=== PATIENT | female | born 1935 | race Caucasian/White ===

== ENCOUNTER → 2016-11-24 | Outpatient (REF) | payer MEDICARE, BC ==
[~2016-11-24] MED LIST: ASPI81TA83 PO; CALTRATE PO; COLA100C2 PO; DILTIAZEM PO; HYDR25TA6 PO; LEVO100T PO; [UNRECOGNIZED DRUG - OTHER] PO
[2016-11-27 13:57] LABS: PERCENT SATURATION 15.3 % (13.2-37.4)
== END ==
LOC: M LAB REF 12:44
PROVIDERS: ATTEND Internal Medicine
DX: D64.9 Anemia, unspecified (principal)

== ENCOUNTER 2018-01-11 20:59 | Inpatient (IN) | payer MEDICARE, BC ==
[2018-01-11] MEDS: NS 1,000 ML IV (18:30)
[2018-01-11] MEDS: MORPHINE 2 MG/ML 1ML SYRINGE (J2270) IV ×2 (18:59→19:22)
[2018-01-11 19:05] LABS: HEMATOCRIT 36.9 % (36.0-47.0); HEMOGLOBIN 11.5 g/dl (12.0-15.5); MEAN CORPUSCULAR HEMOGLOBIN 25.4 pg (27.0-33.0); MEAN CORPUSCULAR HGB CONC 31.2 g/dl (32.0-36.5); MEAN CORPUSCULAR VOLUME 81.6 fl (80.0-96.0); PLATELET COUNT, AUTOMATED 282 10^3/uL (150-450); RED BLOOD COUNT 4.52 10^6/uL (4.00-5.40); RED CELL DISTRIBUTION WIDTH 14.3 % (11.5-14.5); WHITE BLOOD COUNT 10.6 10^3/uL (4.0-10.0)
[2018-01-11 19:09] LABS: KETONE, URINE AUTO RFX NEGATIVE (NEGATIVE); MUCUS, URINE RFX SMALL (NEGATIVE); NITRITE, URINE AUTO RFX NEGATIVE (NEGATIVE); RBC, URINE AUTO RFX 2 /HPF (0-3); SPECIFIC GRAVITY UR AUTO RFX 1.006 (1.002-1.035); SQUAM EPITHELIAL CELL UR AURFX 1 /HPF (0-6)
[2018-01-11 19:10] LABS: LEUKOCYTE ESTERASE UR AUTO RFX 2+ (NEGATIVE); WBC, URINE AUTO RFX 11 /HPF (0-3)
[2018-01-11 19:35] LABS: ALBUMIN 3.7 GM/DL (3.2-5.2); ALBUMIN/GLOBULIN RATIO 1.06 (1.00-1.93); ALKALINE PHOSPHATASE 87 U/L (45-117); ALT/SGPT 25 U/L (12-78); ANION GAP 9 MEQ/L (8-16); AST/SGOT 31 U/L (7-37); BILIRUBIN,DIRECT < 0.1 MG/DL (0.0-0.2); BILIRUBIN,TOTAL 0.5 MG/DL (0.2-1.0); BLOOD UREA NITROGEN 13 MG/DL (7-18); CALCIUM LEVEL 8.5 MG/DL (8.8-10.2); CARBON DIOXIDE LEVEL 28 MEQ/L (21-32); CHLORIDE LEVEL 102 MEQ/L (98-107); GLOMERULAR FILTRATION RATE 50.4 (>32); GLUCOSE, FASTING 93 MG/DL (70-100); POTASSIUM SERUM 4.3 MEQ/L (3.5-5.1); SODIUM LEVEL 139 MEQ/L (136-145); TOTAL PROTEIN 7.2 GM/DL (6.4-8.2)
[2018-01-11 19:50] LABS: INR 1.04; PROTHROMBIN TIME 13.7 SECONDS (12.1-14.4)
[2018-01-11] MEDS: LORazepam 2 MG/ML VIAL (J2060) IV (20:16)
[~2018-01-11 20:59] MED LIST changes: -ASPI81TA83 PO; -CALTRATE PO; -COLA100C2 PO; -DILTIAZEM PO; -HYDR25TA6 PO; -LEVO100T PO; +MORPHINE 4 MG/ML 1ML VIAL/SYRINGE (J2270) IV; +NS 1,000 ML IV; +PERCOCET 5MG/325MG TAB PO; -[UNRECOGNIZED DRUG - OTHER] PO
[2018-01-11] MEDS ORDERED: ONDANSETRON 4MG/2ML VIAL (J2405) As Ordered (21:40)
[2018-01-11] MEDS ORDERED: ROCURONIUM BROMIDE 50 MG/5 ML VIAL As Ordered (21:40)
[2018-01-11] MEDS ORDERED: dexameTHASONE 4 MG/ML 1ML VIAL (J1100) As Ordered (21:40)
[2018-01-11] MEDS ORDERED: LIDOCAINE 2% INJ 100 MG/5 ML SDV (FOR ANES.) As Ordered (21:40)
[2018-01-11] MEDS ORDERED: PROPOFOL 200 MG/20 ML VIAL As Ordered (21:40)
[2018-01-11] MEDS ORDERED: fentaNYL 100 MCG/2 ML INJECTION (J3010) As Ordered (21:43)
[2018-01-11] MEDS ORDERED: SUCCINYLCHOLINE 100 MG/5 ML SYRINGE (J0330) As Ordered (22:01)
[2018-01-11] MEDS: VANCOMYCIN 1000 MG/20 ML VIAL (J3370) As Ordered (22:20)
[2018-01-11] MEDS ORDERED: PHENYLephrine HCL 500 MCG/5 ML (100MCG/ML) SYRINGE (J2370) As Ordered (22:34)
[2018-01-11] MEDS: CLINDAMYCIN 600 MG/50 ML PREMIX BAG As Ordered (23:00)
[2018-01-11] MEDS: BUPIVACAINE/EPIN 0.25% 30 ML VIAL As Ordered (23:00)
[2018-01-11] MEDS ORDERED: MORPHINE 4 MG/ML 1ML VIAL/SYRINGE (J2270) IV (23:45)
[2018-01-11] MEDS ORDERED: ONDANSETRON 4MG/2ML VIAL (J2405) IV (23:45)
[2018-01-11] MEDS ORDERED: fentaNYL 100 MCG/2 ML INJECTION (J3010) IV (23:45)
[2018-01-11] MEDS: LR 1,000 ML IV (23:45)
[2018-01-12] MEDS: SENOKOT S TAB PO ×3 (00:47→21:43)
[2018-01-12] MEDS: PERCOCET 5MG/325MG TAB PO ×2 (00:48→18:22)
[2018-01-12] MEDS: LR 1,000 ML IV (00:48)
[2018-01-12] MEDS: diltiaZEM **CD** 180 MG CAP PO ×2 (00:48→21:43)
[2018-01-12] MEDS: LEVOTHYROXINE 112MCG TABLET (0.112MG) PO (05:12)
[2018-01-12] MEDS: ACETAMINOPHEN TAB 650MG DOSE (2X325MG) PO (05:13)
[2018-01-12 05:31] LABS: HEMATOCRIT 32.8 % (36.0-47.0); HEMOGLOBIN 10.4 g/dl (12.0-15.5); MEAN CORPUSCULAR HEMOGLOBIN 26.1 pg (27.0-33.0); MEAN CORPUSCULAR HGB CONC 31.7 g/dl (32.0-36.5); MEAN CORPUSCULAR VOLUME 82.2 fl (80.0-96.0); PLATELET COUNT, AUTOMATED 236 10^3/uL (150-450); RED BLOOD COUNT 3.99 10^6/uL (4.00-5.40); RED CELL DISTRIBUTION WIDTH 14.1 % (11.5-14.5); WHITE BLOOD COUNT 9.5 10^3/uL (4.0-10.0)
[2018-01-12 05:44] LABS: ANION GAP 9 MEQ/L (8-16); BLOOD UREA NITROGEN 11 MG/DL (7-18); CALCIUM LEVEL 7.9 MG/DL (8.8-10.2); CARBON DIOXIDE LEVEL 26 MEQ/L (21-32); CHLORIDE LEVEL 105 MEQ/L (98-107); CREATININE FOR GFR 0.98 MG/DL (0.55-1.30); GLOMERULAR FILTRATION RATE 57.6 (>32); GLUCOSE, FASTING 146 MG/DL (70-100); POTASSIUM SERUM 4.2 MEQ/L (3.5-5.1); SODIUM LEVEL 140 MEQ/L (136-145)
[2018-01-12] MEDS ORDERED: ASPIRIN ENTERIC 325 MG TAB PO (09:00)
[2018-01-12] MEDS: VITAMIN D 1,000 INTERNATIONAL UNITS TABLET PO (10:19)
[2018-01-12] MEDS: FUROSEMIDE 40 MG TAB PO (10:19)
[2018-01-12] MEDS: POTASSIUM CHLORIDE 10 MEQ SR TABLET PO (10:19)
[2018-01-12] MEDS: PANTOPRAZOLE 40MG TAB (PROTONIX) PO (10:19)
[2018-01-12] MEDS: ENOXAPARIN 40 MG/0.4 ML SYRINGE (J1650) SC (10:20)
[2018-01-12] MEDS: METAMUCIL (PSYLLIUM) PACKET PO (10:20)
[2018-01-13] MEDS: ACETAMINOPHEN TAB 650MG DOSE (2X325MG) PO ×2 (03:43→09:18)
[2018-01-13] MEDS: LEVOTHYROXINE 112MCG TABLET (0.112MG) PO (06:04)
[2018-01-13] MEDS ORDERED: IPRATROPIUM 0.5MG/ALBUTEROL 2.5MG INH SOL UD 3ML (DUONEB)(J7620) NEB (07:15)
[2018-01-13 08:12] LABS: HEMATOCRIT 29.8 % (36.0-47.0); HEMOGLOBIN 9.3 g/dl (12.0-15.5); MEAN CORPUSCULAR HEMOGLOBIN 25.5 pg (27.0-33.0); MEAN CORPUSCULAR HGB CONC 31.2 g/dl (32.0-36.5); MEAN CORPUSCULAR VOLUME 81.6 fl (80.0-96.0); PLATELET COUNT, AUTOMATED 230 10^3/uL (150-450); RED BLOOD COUNT 3.65 10^6/uL (4.00-5.40); RED CELL DISTRIBUTION WIDTH 14.4 % (11.5-14.5); WHITE BLOOD COUNT 8.1 10^3/uL (4.0-10.0)
[2018-01-13 08:33] LABS: ANION GAP 8 MEQ/L (8-16); BLOOD UREA NITROGEN 20 MG/DL (7-18); CALCIUM LEVEL 7.8 MG/DL (8.8-10.2); CARBON DIOXIDE LEVEL 27 MEQ/L (21-32); CHLORIDE LEVEL 103 MEQ/L (98-107); CREATININE FOR GFR 1.13 MG/DL (0.55-1.30); GLOMERULAR FILTRATION RATE 48.8 (>32); GLUCOSE, FASTING 101 MG/DL (70-100); POTASSIUM SERUM 4.1 MEQ/L (3.5-5.1); SODIUM LEVEL 138 MEQ/L (136-145)
[2018-01-13 08:36] LABS: CPK CREATINE PHOSPHOKINASE 185 U/L (26-192); TROPONIN I 0.06 NG/ML (< 0.10)
[2018-01-13 08:37] LABS: MB/CK RELATIVE INDEX 1.62 (< OR =4); NT-PRO BNP 880 PG/ML (<450)
[2018-01-13] MEDS: IPRATROPIUM 0.5MG/ALBUTEROL 2.5MG INH SOL UD 3ML (DUONEB)(J7620) NEB ×4 (08:48→20:17)
[2018-01-13] MEDS: VITAMIN D 1,000 INTERNATIONAL UNITS TABLET PO (09:19)
[2018-01-13] MEDS: POTASSIUM CHLORIDE 10 MEQ SR TABLET PO (09:19)
[2018-01-13] MEDS: SENOKOT S TAB PO ×2 (09:19→21:06)
[2018-01-13] MEDS: PANTOPRAZOLE 40MG TAB (PROTONIX) PO (09:19)
[2018-01-13] MEDS: FUROSEMIDE 40 MG TAB PO (09:19)
[2018-01-13] MEDS: ENOXAPARIN 40 MG/0.4 ML SYRINGE (J1650) SC (09:20)
[2018-01-13] MEDS: MIRALAX *UNIT DOSE* 17GM PACKET PO (09:20)
[2018-01-13] MEDS: PERCOCET 5MG/325MG TAB PO ×2 (14:21→21:06)
[2018-01-13] MEDS: diltiaZEM **CD** 180 MG CAP PO (21:07)
[2018-01-14] MEDS: LEVOTHYROXINE 112MCG TABLET (0.112MG) PO (05:43)
[2018-01-14 06:40] LABS: HEMATOCRIT 30.1 % (36.0-47.0); HEMOGLOBIN 9.4 g/dl (12.0-15.5); MEAN CORPUSCULAR HEMOGLOBIN 25.5 pg (27.0-33.0); MEAN CORPUSCULAR HGB CONC 31.2 g/dl (32.0-36.5); MEAN CORPUSCULAR VOLUME 81.8 fl (80.0-96.0); PLATELET COUNT, AUTOMATED 225 10^3/uL (150-450); RED BLOOD COUNT 3.68 10^6/uL (4.00-5.40); RED CELL DISTRIBUTION WIDTH 14.6 % (11.5-14.5); WHITE BLOOD COUNT 6.5 10^3/uL (4.0-10.0)
[2018-01-14] MEDS: IPRATROPIUM 0.5MG/ALBUTEROL 2.5MG INH SOL UD 3ML (DUONEB)(J7620) NEB ×2 (08:49→12:31)
[2018-01-14] MEDS: VITAMIN D 1,000 INTERNATIONAL UNITS TABLET PO (09:51)
[2018-01-14] MEDS: FUROSEMIDE 40 MG TAB PO (09:51)
[2018-01-14] MEDS: ACETAMINOPHEN TAB 650MG DOSE (2X325MG) PO (09:51)
[2018-01-14] MEDS: POTASSIUM CHLORIDE 10 MEQ SR TABLET PO (09:52)
[2018-01-14] MEDS: PANTOPRAZOLE 40MG TAB (PROTONIX) PO (09:52)
[2018-01-14] MEDS: SENOKOT S TAB PO (09:52)
[2018-01-14] MEDS: MIRALAX *UNIT DOSE* 17GM PACKET PO (09:53)
[2018-01-14] MEDS: ENOXAPARIN 40 MG/0.4 ML SYRINGE (J1650) SC (09:53)
== END 2018-01-14 14:00 | DRG 481 ==
LOC: M MS5PR 01-12 00:25 → M ED 20:59 → M ED INP 21:02
PROC: 0QS604Z Reposition Right Upper Femur with Internal Fixation Device, Open Approach (ICD-10-PCS; principal; 2018-01-11 21:57)
DX: S72.001A Fracture of unspecified part of neck of right femur, initial encounter for closed fracture (principal); S52.501A Unspecified fracture of the lower end of right radius, initial encounter for closed fracture; I10 Essential (primary) hypertension; W01.0XXA Fall on same level from slipping, tripping and stumbling without subsequent striking against object, initial encounter; Y92.89 Other specified places as the place of occurrence of the external cause; Y93.01 Activity, walking, marching and hiking; E78.5 Hyperlipidemia, unspecified; E03.9 Hypothyroidism, unspecified; Z90.49 Acquired absence of other specified parts of digestive tract; Z88.0 Allergy status to penicillin; Z88.5 Allergy status to narcotic agent; Z88.1 Allergy status to other antibiotic agents; Z87.891 Personal history of nicotine dependence

== ENCOUNTER 2018-01-14 14:05 | Inpatient (IN) | payer MEDICARE, BC ==
[~2018-01-14 14:05] MED LIST changes: +BISACODYL 10 MG SUPP PR; +MOM 30ML SUSPENSION UDC PO; -MORPHINE 4 MG/ML 1ML VIAL/SYRINGE (J2270) IV; -NS 1,000 ML IV; +ONDANSETRON 4 MG TAB (S0181) PO; +ONDANSETRON 4MG/2ML VIAL (J2405) IM; -PERCOCET 5MG/325MG TAB PO
[2018-01-14] MEDS ORDERED: IPRATROPIUM 0.5MG/ALBUTEROL 2.5MG INH SOL UD 3ML (DUONEB)(J7620) NEB (14:45)
[2018-01-14] MEDS: PERCOCET 5MG/325MG TAB PO ×2 (14:56→21:12)
[2018-01-14] MEDS: ASPIRIN 81 MG ENTERIC TAB PO (15:44)
[2018-01-14] MEDS: diltiaZEM **CD** 180 MG CAP PO (21:11)
[2018-01-14] MEDS: BISACODYL 5 MG TAB PO (21:12)
[2018-01-14] MEDS: SENOKOT S TAB PO (21:12)
[2018-01-15] MEDS: LEVOTHYROXINE 112MCG TABLET (0.112MG) PO (06:28)
[2018-01-15] MEDS: PERCOCET 5MG/325MG TAB PO ×2 (06:31→20:13)
[2018-01-15 06:36] LABS: BASO # 0.1 10^3/uL (0.0-0.2); BASO % 0.9 % (0.0-1.0); EOS # 0.4 10^3/uL (0.0-0.50); EOS % 6.3 % (0.0-3.0); HEMATOCRIT 29.1 % (36.0-47.0); HEMOGLOBIN 9.1 g/dl (12.0-15.5); IMMATURE GRANULOCYTE % 0.4 % (0-3.0); LYMPH # 1.3 10^3/uL (1.5-4.5); MEAN CORPUSCULAR HEMOGLOBIN 25.7 pg (27.0-33.0); MEAN CORPUSCULAR HGB CONC 31.3 g/dl (32.0-36.5); MEAN CORPUSCULAR VOLUME 82.2 fl (80.0-96.0); MONO # 0.5 10^3/uL (0.0-0.8); MONO % 9.5 % (0.0-5.0); NEUTROPHILS # 3.3 10^3/uL (1.8-7.7); NEUTROPHILS % 58.9 % (36.0-66.0); PLATELET COUNT, AUTOMATED 253 10^3/uL (150-450); RED BLOOD COUNT 3.54 10^6/uL (4.00-5.40); RED CELL DISTRIBUTION WIDTH 14.6 % (11.5-14.5); WHITE BLOOD COUNT 5.6 10^3/uL (4.0-10.0)
[2018-01-15 06:58] LABS: ALBUMIN 2.4 GM/DL (3.2-5.2); ALKALINE PHOSPHATASE 149 U/L (45-117); ALT/SGPT 129 U/L (12-78); ANION GAP 7 MEQ/L (8-16); AST/SGOT 48 U/L (7-37); BILIRUBIN,TOTAL 0.8 MG/DL (0.2-1.0); BLOOD UREA NITROGEN 13 MG/DL (7-18); CALCIUM LEVEL 8.1 MG/DL (8.8-10.2); CARBON DIOXIDE LEVEL 31 MEQ/L (21-32); CHLORIDE LEVEL 101 MEQ/L (98-107); GLOMERULAR FILTRATION RATE > 60.0 (>32); GLUCOSE, FASTING 96 MG/DL (70-100); POTASSIUM SERUM 3.8 MEQ/L (3.5-5.1); SODIUM LEVEL 139 MEQ/L (136-145); TOTAL PROTEIN 6.4 GM/DL (6.4-8.2)
[2018-01-15] MEDS: ENOXAPARIN 40 MG/0.4 ML SYRINGE (J1650) SC (08:48)
[2018-01-15] MEDS: SENOKOT S TAB PO (08:48)
[2018-01-15] MEDS: MIRALAX *UNIT DOSE* 17GM PACKET PO (08:48)
[2018-01-15] MEDS: POTASSIUM CHLORIDE 10 MEQ SR TABLET PO (08:49)
[2018-01-15] MEDS: ASPIRIN 81 MG ENTERIC TAB PO (08:49)
[2018-01-15] MEDS: VITAMIN D 1,000 INTERNATIONAL UNITS TABLET PO (08:49)
[2018-01-15] MEDS: BISACODYL 5 MG TAB PO (08:49)
[2018-01-15] MEDS: FUROSEMIDE 40 MG TAB PO (08:49)
[2018-01-15] MEDS: PANTOPRAZOLE 40MG TAB (PROTONIX) PO (08:49)
[2018-01-15 11:45] LABS: KETONE, URINE AUTO RFX NEGATIVE (NEGATIVE); LEUKOCYTE ESTERASE UR AUTO RFX 2+ (NEGATIVE); MUCUS, URINE RFX SMALL (NEGATIVE); NITRITE, URINE AUTO RFX NEGATIVE (NEGATIVE); RBC, URINE AUTO RFX 7 /HPF (0-3); SPECIFIC GRAVITY UR AUTO RFX 1.023 (1.002-1.035); SQUAM EPITHELIAL CELL UR AURFX 14 /HPF (0-6); WBC, URINE AUTO RFX 30 /HPF (0-3)
[2018-01-15] MEDS: FLEET ENEMA PR (13:38)
[2018-01-15] MEDS: DOCUSATE SODIUM 100 MG CAP PO (20:11)
[2018-01-15] MEDS: diltiaZEM **CD** 180 MG CAP PO (20:12)
[2018-01-15] MEDS: SENNA 8.6 MG TAB (SENOKOT) PO (20:13)
[2018-01-16] MEDS: LEVOTHYROXINE 112MCG TABLET (0.112MG) PO (06:24)
[2018-01-16] MEDS: PERCOCET 5MG/325MG TAB PO ×2 (06:25→21:30)
[2018-01-16] MEDS: FUROSEMIDE 40 MG TAB PO (08:19)
[2018-01-16] MEDS: ENOXAPARIN 40 MG/0.4 ML SYRINGE (J1650) SC (08:19)
[2018-01-16] MEDS: VITAMIN D 1,000 INTERNATIONAL UNITS TABLET PO (08:19)
[2018-01-16] MEDS: ASPIRIN 81 MG ENTERIC TAB PO (08:19)
[2018-01-16] MEDS: PANTOPRAZOLE 40MG TAB (PROTONIX) PO (08:19)
[2018-01-16] MEDS: MIRALAX *UNIT DOSE* 17GM PACKET PO (08:19)
[2018-01-16] MEDS: DOCUSATE SODIUM 100 MG CAP PO ×2 (08:19→21:28)
[2018-01-16] MEDS: POTASSIUM CHLORIDE 10 MEQ SR TABLET PO (08:19)
[2018-01-16] MEDS: SENNA 8.6 MG TAB (SENOKOT) PO (21:29)
[2018-01-16] MEDS: diltiaZEM **CD** 180 MG CAP PO (21:29)
[2018-01-17] MEDS: PERCOCET 5MG/325MG TAB PO ×2 (06:24→19:53)
[2018-01-17] MEDS: LEVOTHYROXINE 112MCG TABLET (0.112MG) PO (06:24)
[2018-01-17 07:41] LABS: BASO # 0.1 10^3/uL (0.0-0.2); BASO % 1.3 % (0.0-1.0); EOS # 0.2 10^3/uL (0.0-0.50); HEMATOCRIT 28.9 % (36.0-47.0); IMMATURE GRANULOCYTE % 0.7 % (0-3.0); LYMPH # 1.1 10^3/uL (1.5-4.5); LYMPH % 23.7 % (24.0-44.0); MEAN CORPUSCULAR HEMOGLOBIN 25.9 pg (27.0-33.0); MEAN CORPUSCULAR HGB CONC 31.1 g/dl (32.0-36.5); MEAN CORPUSCULAR VOLUME 83.3 fl (80.0-96.0); MONO # 0.5 10^3/uL (0.0-0.8); MONO % 11.8 % (0.0-5.0); NEUTROPHILS # 2.6 10^3/uL (1.8-7.7); NEUTROPHILS % 57.5 % (36.0-66.0); PLATELET COUNT, AUTOMATED 287 10^3/uL (150-450); RED BLOOD COUNT 3.47 10^6/uL (4.00-5.40); RED CELL DISTRIBUTION WIDTH 14.6 % (11.5-14.5); WHITE BLOOD COUNT 4.6 10^3/uL (4.0-10.0)
[2018-01-17 07:46] LABS: ANION GAP 8 MEQ/L (8-16); BLOOD UREA NITROGEN 12 MG/DL (7-18); CALCIUM LEVEL 8.3 MG/DL (8.8-10.2); CARBON DIOXIDE LEVEL 32 MEQ/L (21-32); CHLORIDE LEVEL 98 MEQ/L (98-107); CREATININE FOR GFR 0.85 MG/DL (0.55-1.30); GLOMERULAR FILTRATION RATE > 60.0 (>32); GLUCOSE, FASTING 102 MG/DL (70-100); POTASSIUM SERUM 3.9 MEQ/L (3.5-5.1); SODIUM LEVEL 138 MEQ/L (136-145)
[2018-01-17] MEDS: MIRALAX *UNIT DOSE* 17GM PACKET PO (09:00)
[2018-01-17] MEDS: DOCUSATE SODIUM 100 MG CAP PO ×2 (09:37→19:53)
[2018-01-17] MEDS: PANTOPRAZOLE 40MG TAB (PROTONIX) PO (09:37)
[2018-01-17] MEDS: VITAMIN D 1,000 INTERNATIONAL UNITS TABLET PO (09:37)
[2018-01-17] MEDS: ASPIRIN 81 MG ENTERIC TAB PO (09:38)
[2018-01-17] MEDS: FUROSEMIDE 40 MG TAB PO (09:38)
[2018-01-17] MEDS: POTASSIUM CHLORIDE 10 MEQ SR TABLET PO (09:38)
[2018-01-17] MEDS: ENOXAPARIN 40 MG/0.4 ML SYRINGE (J1650) SC (09:38)
[2018-01-17 12:25] LABS: ALBUMIN 2.4 GM/DL (3.2-5.2); ALBUMIN/GLOBULIN RATIO 0.59 (1.00-1.93); ALKALINE PHOSPHATASE 210 U/L (45-117); ALT/SGPT 110 U/L (12-78); AST/SGOT 70 U/L (7-37); BILIRUBIN,DIRECT 0.2 MG/DL (0.0-0.2); BILIRUBIN,TOTAL 0.7 MG/DL (0.2-1.0); TOTAL PROTEIN 6.5 GM/DL (6.4-8.2)
[2018-01-17] MEDS: diltiaZEM **CD** 180 MG CAP PO (19:52)
[2018-01-17] MEDS: SENNA 8.6 MG TAB (SENOKOT) PO (19:53)
[2018-01-17] MEDS: ANUSOL HC 25MG SUPP PR (21:41)
[2018-01-18] MEDS: ANUSOL HC 25MG SUPP PR ×2 (05:28→20:45)
[2018-01-18] MEDS: LEVOTHYROXINE 112MCG TABLET (0.112MG) PO (05:28)
[2018-01-18] MEDS: ENOXAPARIN 40 MG/0.4 ML SYRINGE (J1650) SC (08:11)
[2018-01-18] MEDS: FUROSEMIDE 40 MG TAB PO (08:12)
[2018-01-18] MEDS: ACETAMINOPHEN TAB 650MG DOSE (2X325MG) PO ×2 (08:12→20:46)
[2018-01-18] MEDS: MIRALAX *UNIT DOSE* 17GM PACKET PO (08:13)
[2018-01-18] MEDS: PANTOPRAZOLE 40MG TAB (PROTONIX) PO (08:13)
[2018-01-18] MEDS: POTASSIUM CHLORIDE 10 MEQ SR TABLET PO (08:13)
[2018-01-18] MEDS: DOCUSATE SODIUM 100 MG CAP PO ×2 (08:13→20:45)
[2018-01-18] MEDS: ASPIRIN 81 MG ENTERIC TAB PO (08:13)
[2018-01-18] MEDS: VITAMIN D 1,000 INTERNATIONAL UNITS TABLET PO (08:13)
[2018-01-18 08:47] LABS: ALBUMIN 2.6 GM/DL (3.2-5.2); ALBUMIN/GLOBULIN RATIO 0.74 (1.00-1.93); ALKALINE PHOSPHATASE 209 U/L (45-117); ALT/SGPT 100 U/L (12-78); ANION GAP 8 MEQ/L (8-16); AST/SGOT 60 U/L (7-37); BILIRUBIN,TOTAL 0.6 MG/DL (0.2-1.0); BLOOD UREA NITROGEN 11 MG/DL (7-18); CALCIUM LEVEL 8.6 MG/DL (8.8-10.2); CARBON DIOXIDE LEVEL 33 MEQ/L (21-32); CHLORIDE LEVEL 98 MEQ/L (98-107); CREATININE FOR GFR 0.86 MG/DL (0.55-1.30); GLOMERULAR FILTRATION RATE > 60.0 (>32); GLUCOSE, FASTING 94 MG/DL (70-100); POTASSIUM SERUM 4.3 MEQ/L (3.5-5.1); SODIUM LEVEL 139 MEQ/L (136-145); TOTAL PROTEIN 6.1 GM/DL (6.4-8.2)
[2018-01-18] MEDS: diltiaZEM **CD** 180 MG CAP PO (20:46)
[2018-01-18] MEDS: SENNA 8.6 MG TAB (SENOKOT) PO (20:46)
[2018-01-18] MEDS: PERCOCET 5MG/325MG TAB PO (23:57)
[2018-01-19] MEDS: LEVOTHYROXINE 112MCG TABLET (0.112MG) PO (05:56)
[2018-01-19 06:57] LABS: HEMATOCRIT 27.5 % (36.0-47.0); HEMOGLOBIN 8.7 g/dl (12.0-15.5); MEAN CORPUSCULAR HEMOGLOBIN 25.9 pg (27.0-33.0); MEAN CORPUSCULAR HGB CONC 31.6 g/dl (32.0-36.5); MEAN CORPUSCULAR VOLUME 81.8 fl (80.0-96.0); PLATELET COUNT, AUTOMATED 343 10^3/uL (150-450); RED BLOOD COUNT 3.36 10^6/uL (4.00-5.40); RED CELL DISTRIBUTION WIDTH 14.7 % (11.5-14.5); WHITE BLOOD COUNT 5.3 10^3/uL (4.0-10.0)
[2018-01-19 07:19] LABS: ALBUMIN 2.6 GM/DL (3.2-5.2); ALBUMIN/GLOBULIN RATIO 0.68 (1.00-1.93); ALKALINE PHOSPHATASE 218 U/L (45-117); ALT/SGPT 107 U/L (12-78); ANION GAP 4 MEQ/L (8-16); AST/SGOT 98 U/L (7-37); BILIRUBIN,TOTAL 0.5 MG/DL (0.2-1.0); BLOOD UREA NITROGEN 13 MG/DL (7-18); CALCIUM LEVEL 8.3 MG/DL (8.8-10.2); CARBON DIOXIDE LEVEL 34 MEQ/L (21-32); CHLORIDE LEVEL 100 MEQ/L (98-107); CREATININE FOR GFR 0.94 MG/DL (0.55-1.30); GLOMERULAR FILTRATION RATE > 60.0 (>32); GLUCOSE, FASTING 102 MG/DL (70-100); POTASSIUM SERUM 4.1 MEQ/L (3.5-5.1); SODIUM LEVEL 138 MEQ/L (136-145); TOTAL PROTEIN 6.4 GM/DL (6.4-8.2)
[2018-01-19] MEDS: ASPIRIN 81 MG ENTERIC TAB PO (07:55)
[2018-01-19] MEDS: ENOXAPARIN 40 MG/0.4 ML SYRINGE (J1650) SC (07:55)
[2018-01-19] MEDS: MIRALAX *UNIT DOSE* 17GM PACKET PO (07:56)
[2018-01-19] MEDS: DOCUSATE SODIUM 100 MG CAP PO ×2 (07:56→21:06)
[2018-01-19] MEDS: POTASSIUM CHLORIDE 10 MEQ SR TABLET PO (07:56)
[2018-01-19] MEDS: PANTOPRAZOLE 40MG TAB (PROTONIX) PO (07:56)
[2018-01-19] MEDS: FUROSEMIDE 40 MG TAB PO (07:56)
[2018-01-19] MEDS: VITAMIN D 1,000 INTERNATIONAL UNITS TABLET PO (07:56)
[2018-01-19] MEDS: PERCOCET 5MG/325MG TAB PO ×3 (07:57→21:06)
[2018-01-19 09:13] LABS: HEPATITIS A IgG TOTAL Negative (Negative)
[2018-01-19] MEDS: ANUSOL HC 25MG SUPP PR ×2 (10:01→21:07)
[2018-01-19] MEDS: SENNA 8.6 MG TAB (SENOKOT) PO (21:00)
[2018-01-19] MEDS: diltiaZEM **CD** 180 MG CAP PO (21:05)
[2018-01-20] MEDS: LEVOTHYROXINE 112MCG TABLET (0.112MG) PO (05:44)
[2018-01-20] MEDS: PERCOCET 5MG/325MG TAB PO ×3 (05:44→22:09)
[2018-01-20 06:58] LABS: HEMATOCRIT 26.8 % (36.0-47.0); HEMOGLOBIN 8.2 g/dl (12.0-15.5); MEAN CORPUSCULAR HEMOGLOBIN 25.5 pg (27.0-33.0); MEAN CORPUSCULAR HGB CONC 30.6 g/dl (32.0-36.5); MEAN CORPUSCULAR VOLUME 83.5 fl (80.0-96.0); PLATELET COUNT, AUTOMATED 320 10^3/uL (150-450); RED BLOOD COUNT 3.21 10^6/uL (4.00-5.40); RED CELL DISTRIBUTION WIDTH 14.9 % (11.5-14.5); WHITE BLOOD COUNT 5.4 10^3/uL (4.0-10.0)
[2018-01-20] MEDS: MIRALAX *UNIT DOSE* 17GM PACKET PO (09:00)
[2018-01-20] MEDS: FUROSEMIDE 40 MG TAB PO (09:21)
[2018-01-20] MEDS: VITAMIN D 1,000 INTERNATIONAL UNITS TABLET PO (09:21)
[2018-01-20] MEDS: DOCUSATE SODIUM 100 MG CAP PO ×2 (09:22→20:00)
[2018-01-20] MEDS: POTASSIUM CHLORIDE 10 MEQ SR TABLET PO (09:22)
[2018-01-20] MEDS: PANTOPRAZOLE 40MG TAB (PROTONIX) PO (09:22)
[2018-01-20] MEDS: ANUSOL HC 25MG SUPP PR ×2 (09:22→22:08)
[2018-01-20] MEDS: ASPIRIN 81 MG ENTERIC TAB PO (09:22)
[2018-01-20] MEDS: ENOXAPARIN 40 MG/0.4 ML SYRINGE (J1650) SC (09:44)
[2018-01-20] MEDS: diltiaZEM **CD** 180 MG CAP PO (20:01)
[2018-01-20] MEDS: SENNA 8.6 MG TAB (SENOKOT) PO (20:01)
[2018-01-21] MEDS: LEVOTHYROXINE 112MCG TABLET (0.112MG) PO (06:12)
[2018-01-21 06:58] LABS: HEMATOCRIT 26.4 % (36.0-47.0); HEMOGLOBIN 8.3 g/dl (12.0-15.5); MEAN CORPUSCULAR HEMOGLOBIN 25.9 pg (27.0-33.0); MEAN CORPUSCULAR HGB CONC 31.4 g/dl (32.0-36.5); MEAN CORPUSCULAR VOLUME 82.2 fl (80.0-96.0); PLATELET COUNT, AUTOMATED 375 10^3/uL (150-450); RED BLOOD COUNT 3.21 10^6/uL (4.00-5.40); RED CELL DISTRIBUTION WIDTH 14.9 % (11.5-14.5); WHITE BLOOD COUNT 6.1 10^3/uL (4.0-10.0)
[2018-01-21] MEDS: MIRALAX *UNIT DOSE* 17GM PACKET PO (09:00)
[2018-01-21] MEDS: DOCUSATE SODIUM 100 MG CAP PO ×2 (09:00→21:45)
[2018-01-21] MEDS: PANTOPRAZOLE 40MG TAB (PROTONIX) PO (09:37)
[2018-01-21] MEDS: ASPIRIN 81 MG ENTERIC TAB PO (09:37)
[2018-01-21] MEDS: VITAMIN D 1,000 INTERNATIONAL UNITS TABLET PO (09:38)
[2018-01-21] MEDS: ENOXAPARIN 40 MG/0.4 ML SYRINGE (J1650) SC (09:38)
[2018-01-21] MEDS: FUROSEMIDE 40 MG TAB PO (09:38)
[2018-01-21] MEDS: POTASSIUM CHLORIDE 10 MEQ SR TABLET PO (09:38)
[2018-01-21] MEDS: PERCOCET 5MG/325MG TAB PO ×2 (09:40→19:39)
[2018-01-21] MEDS: NS 1,000 ML IV (10:34)
[2018-01-21 10:50] LABS: HEPATITIS B SURFACE ANTIBODY NEGATIVE (POSITIVE)
[2018-01-21 10:55] LABS: HEPATITIS B SURFACE ANTIGEN NEGATIVE (NEGATIVE)
[2018-01-21 11:22] LABS: HEPATITIS C VIRUS ABY INDEX 0.1 INDEX (<0.8)
[2018-01-21 16:34] LABS: IMMEDIATE SPIN CROSSMATCH 1 1
[2018-01-21] MEDS: ANUSOL HC 25MG SUPP PR (21:46)
[2018-01-21] MEDS: diltiaZEM **CD** 180 MG CAP PO (21:46)
[2018-01-21] MEDS: SENNA 8.6 MG TAB (SENOKOT) PO (21:51)
[2018-01-22] MEDS: LEVOTHYROXINE 112MCG TABLET (0.112MG) PO (06:27)
[2018-01-22 07:04] LABS: HEMATOCRIT 32.4 % (36.0-47.0); MEAN CORPUSCULAR HEMOGLOBIN 25.5 pg (27.0-33.0); MEAN CORPUSCULAR HGB CONC 31.8 g/dl (32.0-36.5); MEAN CORPUSCULAR VOLUME 80.2 fl (80.0-96.0); PLATELET COUNT, AUTOMATED 440 10^3/uL (150-450); RED BLOOD COUNT 4.04 10^6/uL (4.00-5.40); RED CELL DISTRIBUTION WIDTH 16.5 % (11.5-14.5); WHITE BLOOD COUNT 6.1 10^3/uL (4.0-10.0)
[2018-01-22 07:09] LABS: HEMOGLOBIN 10.3 g/dl (12.0-15.5)
[2018-01-22 07:32] LABS: ALBUMIN 2.7 GM/DL (3.2-5.2); ALBUMIN/GLOBULIN RATIO 0.69 (1.00-1.93); ALKALINE PHOSPHATASE 186 U/L (45-117); ALT/SGPT 60 U/L (12-78); ANION GAP 6 MEQ/L (8-16); AST/SGOT 30 U/L (7-37); BILIRUBIN,TOTAL 0.6 MG/DL (0.2-1.0); BLOOD UREA NITROGEN 12 MG/DL (7-18); CALCIUM LEVEL 8.5 MG/DL (8.8-10.2); CARBON DIOXIDE LEVEL 33 MEQ/L (21-32); CHLORIDE LEVEL 99 MEQ/L (98-107); CREATININE FOR GFR 0.98 MG/DL (0.55-1.30); GLOMERULAR FILTRATION RATE 57.6 (>32); GLUCOSE, FASTING 108 MG/DL (70-100); POTASSIUM SERUM 4.4 MEQ/L (3.5-5.1); SODIUM LEVEL 138 MEQ/L (136-145); TOTAL PROTEIN 6.6 GM/DL (6.4-8.2)
[2018-01-22] MEDS: ASPIRIN 81 MG ENTERIC TAB PO (08:57)
[2018-01-22] MEDS: POTASSIUM CHLORIDE 10 MEQ SR TABLET PO (08:57)
[2018-01-22] MEDS: PANTOPRAZOLE 40MG TAB (PROTONIX) PO (08:57)
[2018-01-22] MEDS: DOCUSATE SODIUM 100 MG CAP PO ×2 (08:57→20:37)
[2018-01-22] MEDS: ENOXAPARIN 40 MG/0.4 ML SYRINGE (J1650) SC (08:57)
[2018-01-22] MEDS: PERCOCET 5MG/325MG TAB PO ×3 (08:57→20:49)
[2018-01-22] MEDS: VITAMIN D 1,000 INTERNATIONAL UNITS TABLET PO (08:57)
[2018-01-22] MEDS: FUROSEMIDE 40 MG TAB PO (08:57)
[2018-01-22] MEDS: MIRALAX *UNIT DOSE* 17GM PACKET PO (08:58)
[2018-01-22] MEDS: ANUSOL HC 25MG SUPP PR ×2 (14:13→20:39)
[2018-01-22] MEDS: diltiaZEM **CD** 180 MG CAP PO (20:39)
[2018-01-22] MEDS: SENNA 8.6 MG TAB (SENOKOT) PO (21:00)
[2018-01-23] MEDS: LEVOTHYROXINE 112MCG TABLET (0.112MG) PO (05:55)
[2018-01-23 07:33] LABS: HEMATOCRIT 31.8 % (36.0-47.0); MEAN CORPUSCULAR HEMOGLOBIN 25.8 pg (27.0-33.0); MEAN CORPUSCULAR HGB CONC 31.4 g/dl (32.0-36.5); PLATELET COUNT, AUTOMATED 430 10^3/uL (150-450); RED BLOOD COUNT 3.88 10^6/uL (4.00-5.40); RED CELL DISTRIBUTION WIDTH 16.1 % (11.5-14.5); WHITE BLOOD COUNT 6.3 10^3/uL (4.0-10.0)
[2018-01-23] MEDS: MIRALAX *UNIT DOSE* 17GM PACKET PO (09:00)
[2018-01-23] MEDS: ASPIRIN 81 MG ENTERIC TAB PO (09:05)
[2018-01-23] MEDS: FUROSEMIDE 40 MG TAB PO (09:05)
[2018-01-23] MEDS: PANTOPRAZOLE 40MG TAB (PROTONIX) PO (09:05)
[2018-01-23] MEDS: PERCOCET 5MG/325MG TAB PO ×2 (09:06→20:13)
[2018-01-23] MEDS: POTASSIUM CHLORIDE 10 MEQ SR TABLET PO (09:06)
[2018-01-23] MEDS: VITAMIN D 1,000 INTERNATIONAL UNITS TABLET PO (09:07)
[2018-01-23] MEDS: ENOXAPARIN 40 MG/0.4 ML SYRINGE (J1650) SC (09:07)
[2018-01-23] MEDS: DOCUSATE SODIUM 100 MG CAP PO ×2 (09:08→20:12)
[2018-01-23] MEDS: ANUSOL HC 25MG SUPP PR (20:12)
[2018-01-23] MEDS: diltiaZEM **CD** 180 MG CAP PO (20:12)
[2018-01-23] MEDS: SENNA 8.6 MG TAB (SENOKOT) PO (21:00)
[2018-01-24] MEDS: PERCOCET 5MG/325MG TAB PO ×3 (03:57→21:17)
[2018-01-24] MEDS: LEVOTHYROXINE 112MCG TABLET (0.112MG) PO (05:49)
[2018-01-24] MEDS: MIRALAX *UNIT DOSE* 17GM PACKET PO (09:00)
[2018-01-24] MEDS: VITAMIN D 1,000 INTERNATIONAL UNITS TABLET PO (09:03)
[2018-01-24] MEDS: DOCUSATE SODIUM 100 MG CAP PO ×2 (09:03→21:16)
[2018-01-24] MEDS: PANTOPRAZOLE 40MG TAB (PROTONIX) PO (09:03)
[2018-01-24] MEDS: ENOXAPARIN 40 MG/0.4 ML SYRINGE (J1650) SC (09:03)
[2018-01-24] MEDS: ASPIRIN 81 MG ENTERIC TAB PO (09:03)
[2018-01-24] MEDS: POTASSIUM CHLORIDE 10 MEQ SR TABLET PO (09:04)
[2018-01-24] MEDS: FUROSEMIDE 40 MG TAB PO (09:04)
[2018-01-24] MEDS: SENNA 8.6 MG TAB (SENOKOT) PO (21:00)
[2018-01-24] MEDS: ANUSOL HC 25MG SUPP PR (21:16)
[2018-01-24] MEDS: diltiaZEM **CD** 180 MG CAP PO (21:18)
[2018-01-25] MEDS: LEVOTHYROXINE 112MCG TABLET (0.112MG) PO (06:12)
[2018-01-25] MEDS: MIRALAX *UNIT DOSE* 17GM PACKET PO (09:00)
[2018-01-25] MEDS: ANUSOL HC 25MG SUPP PR ×2 (09:00→21:05)
[2018-01-25] MEDS: DOCUSATE SODIUM 100 MG CAP PO ×2 (09:18→21:05)
[2018-01-25] MEDS: FUROSEMIDE 40 MG TAB PO (09:18)
[2018-01-25] MEDS: POTASSIUM CHLORIDE 10 MEQ SR TABLET PO (09:18)
[2018-01-25] MEDS: VITAMIN D 1,000 INTERNATIONAL UNITS TABLET PO (09:19)
[2018-01-25] MEDS: ASPIRIN 81 MG ENTERIC TAB PO (09:19)
[2018-01-25] MEDS: ENOXAPARIN 40 MG/0.4 ML SYRINGE (J1650) SC (09:19)
[2018-01-25] MEDS: PANTOPRAZOLE 40MG TAB (PROTONIX) PO (09:19)
[2018-01-25] MEDS: ACETAMINOPHEN TAB 650MG DOSE (2X325MG) PO (09:58)
[2018-01-25] MEDS: SENNA 8.6 MG TAB (SENOKOT) PO (21:00)
[2018-01-25] MEDS: PERCOCET 5MG/325MG TAB PO (21:05)
[2018-01-25] MEDS: FAMOTIDINE 20 MG TAB PO (21:05)
[2018-01-25] MEDS: diltiaZEM **CD** 180 MG CAP PO (21:06)
[2018-01-26] MEDS: LEVOTHYROXINE 112MCG TABLET (0.112MG) PO (06:14)
[2018-01-26 07:00] LABS: HEMATOCRIT 30.7 % (36.0-47.0); HEMOGLOBIN 9.6 g/dl (12.0-15.5); MEAN CORPUSCULAR HEMOGLOBIN 26.2 pg (27.0-33.0); MEAN CORPUSCULAR HGB CONC 31.3 g/dl (32.0-36.5); MEAN CORPUSCULAR VOLUME 83.7 fl (80.0-96.0); PLATELET COUNT, AUTOMATED 516 10^3/uL (150-450); RED BLOOD COUNT 3.67 10^6/uL (4.00-5.40); RED CELL DISTRIBUTION WIDTH 15.9 % (11.5-14.5); WHITE BLOOD COUNT 6.3 10^3/uL (4.0-10.0)
[2018-01-26] MEDS: ANUSOL HC 25MG SUPP PR ×2 (07:42→20:05)
[2018-01-26] MEDS: VITAMIN D 1,000 INTERNATIONAL UNITS TABLET PO (07:43)
[2018-01-26] MEDS: PANTOPRAZOLE 40MG TAB (PROTONIX) PO (07:43)
[2018-01-26] MEDS: ASPIRIN ENTERIC 325 MG TAB PO ×2 (07:43→20:05)
[2018-01-26] MEDS: FUROSEMIDE 40 MG TAB PO (07:43)
[2018-01-26] MEDS: DOCUSATE SODIUM 100 MG CAP PO ×2 (07:43→20:05)
[2018-01-26] MEDS: POTASSIUM CHLORIDE 10 MEQ SR TABLET PO (07:43)
[2018-01-26] MEDS: MIRALAX *UNIT DOSE* 17GM PACKET PO (07:43)
[2018-01-26] MEDS: PERCOCET 5MG/325MG TAB PO (18:45)
[2018-01-26] MEDS: FAMOTIDINE 20 MG TAB PO (20:05)
[2018-01-26] MEDS: SENNA 8.6 MG TAB (SENOKOT) PO (20:06)
[2018-01-26] MEDS: diltiaZEM **CD** 180 MG CAP PO (20:06)
[2018-01-27] MEDS: LEVOTHYROXINE 112MCG TABLET (0.112MG) PO (06:18)
[2018-01-27] MEDS: FUROSEMIDE 40 MG TAB PO (10:04)
[2018-01-27] MEDS: VITAMIN D 1,000 INTERNATIONAL UNITS TABLET PO (10:04)
[2018-01-27] MEDS: PANTOPRAZOLE 40MG TAB (PROTONIX) PO (10:04)
[2018-01-27] MEDS: DOCUSATE SODIUM 100 MG CAP PO ×2 (10:04→21:18)
[2018-01-27] MEDS: ASPIRIN ENTERIC 325 MG TAB PO ×2 (10:04→21:17)
[2018-01-27] MEDS: POTASSIUM CHLORIDE 10 MEQ SR TABLET PO (10:05)
[2018-01-27] MEDS: ANUSOL HC 25MG SUPP PR ×2 (10:05→21:18)
[2018-01-27] MEDS: MIRALAX *UNIT DOSE* 17GM PACKET PO ×2 (10:05→10:07)
[2018-01-27] MEDS: ACETAMINOPHEN TAB 650MG DOSE (2X325MG) PO (21:17)
[2018-01-27] MEDS: diltiaZEM **CD** 180 MG CAP PO (21:17)
[2018-01-27] MEDS: SENNA 8.6 MG TAB (SENOKOT) PO (21:18)
[2018-01-27] MEDS: FAMOTIDINE 20 MG TAB PO (21:18)
[2018-01-27] MEDS: PERCOCET 5MG/325MG TAB PO (22:52)
[2018-01-28] MEDS: LEVOTHYROXINE 112MCG TABLET (0.112MG) PO (05:58)
[2018-01-28 07:47] LABS: BASO # 0.1 10^3/uL (0.0-0.2); BASO % 1.6 % (0.0-1.0); EOS # 0.3 10^3/uL (0.0-0.50); EOS % 4.6 % (0.0-3.0); HEMATOCRIT 31.1 % (36.0-47.0); HEMOGLOBIN 9.4 g/dl (12.0-15.5); IMMATURE GRANULOCYTE % 0.4 % (0-3.0); LYMPH # 1.5 10^3/uL (1.5-4.5); LYMPH % 22.9 % (24.0-44.0); MEAN CORPUSCULAR HEMOGLOBIN 25.4 pg (27.0-33.0); MEAN CORPUSCULAR HGB CONC 30.2 g/dl (32.0-36.5); MEAN CORPUSCULAR VOLUME 84.1 fl (80.0-96.0); MONO # 0.5 10^3/uL (0.0-0.8); MONO % 7.6 % (0.0-5.0); NEUTROPHILS # 4.2 10^3/uL (1.8-7.7); NEUTROPHILS % 62.9 % (36.0-66.0); PLATELET COUNT, AUTOMATED 581 10^3/uL (150-450); RED CELL DISTRIBUTION WIDTH 15.9 % (11.5-14.5); WHITE BLOOD COUNT 6.7 10^3/uL (4.0-10.0)
[2018-01-28] MEDS: MIRALAX *UNIT DOSE* 17GM PACKET PO (07:53)
[2018-01-28 08:13] LABS: ANION GAP 5 MEQ/L (8-16); BLOOD UREA NITROGEN 17 MG/DL (7-18); CALCIUM LEVEL 8.2 MG/DL (8.8-10.2); CARBON DIOXIDE LEVEL 33 MEQ/L (21-32); CHLORIDE LEVEL 103 MEQ/L (98-107); CREATININE FOR GFR 0.98 MG/DL (0.55-1.30); GLOMERULAR FILTRATION RATE 57.6 (>32); GLUCOSE, FASTING 92 MG/DL (70-100); MAGNESIUM LEVEL 2.3 MG/DL (1.8-2.4); SODIUM LEVEL 141 MEQ/L (136-145)
[2018-01-28] MEDS: POTASSIUM CHLORIDE 10 MEQ SR TABLET PO (09:20)
[2018-01-28] MEDS: ASPIRIN ENTERIC 325 MG TAB PO (09:20)
[2018-01-28] MEDS: VITAMIN D 1,000 INTERNATIONAL UNITS TABLET PO (09:20)
[2018-01-28] MEDS: PANTOPRAZOLE 40MG TAB (PROTONIX) PO (09:20)
[2018-01-28] MEDS: DOCUSATE SODIUM 100 MG CAP PO (09:20)
[2018-01-28] MEDS: FUROSEMIDE 40 MG TAB PO (09:20)
[2018-01-28] MEDS: ANUSOL HC 25MG SUPP PR (09:20)
[2018-01-28] MEDS: PERCOCET 5MG/325MG TAB PO (09:26)
== END 2018-01-28 13:40 | disposition home health service (06) | DRG 560 ==
LOC: M PM&R 01-25 12:40
PROC: 30233N1 Transfusion of Nonautologous Red Blood Cells into Peripheral Vein, Percutaneous Approach (ICD-10-PCS; principal; 2018-01-21)
DX: S72.001D Fracture of unspecified part of neck of right femur, subsequent encounter for closed fracture with routine healing (principal); N39.0 Urinary tract infection, site not specified; D62 Acute posthemorrhagic anemia; S52.501D Unspecified fracture of the lower end of right radius, subsequent encounter for closed fracture with routine healing; I10 Essential (primary) hypertension; E78.5 Hyperlipidemia, unspecified; E03.9 Hypothyroidism, unspecified; E87.6 Hypokalemia; K64.9 Unspecified hemorrhoids; R11.2 Nausea with vomiting, unspecified; B96.20 Unspecified Escherichia coli [E. coli] as the cause of diseases classified elsewhere; K59.00 Constipation, unspecified; Z79.82 Long term (current) use of aspirin; R74.0 Nonspecific elevation of levels of transaminase and lactic acid dehydrogenase [LDH]; Z79.899 Other long term (current) drug therapy; Z88.0 Allergy status to penicillin; Z88.1 Allergy status to other antibiotic agents; Z88.5 Allergy status to narcotic agent; Z90.49 Acquired absence of other specified parts of digestive tract; Z91.048 Other nonmedicinal substance allergy status; W01.0XXD Fall on same level from slipping, tripping and stumbling without subsequent striking against object, subsequent encounter; Z87.891 Personal history of nicotine dependence; Y92.89 Other specified places as the place of occurrence of the external cause; Y93.01 Activity, walking, marching and hiking

== ENCOUNTER → 2018-02-04 | Outpatient (REF) | payer MEDICARE, BC ==
[2018-02-04 16:14] LABS: ANION GAP 8 MEQ/L (8-16); BLOOD UREA NITROGEN 12 MG/DL (7-18); CALCIUM LEVEL 8.7 MG/DL (8.8-10.2); CARBON DIOXIDE LEVEL 30 MEQ/L (21-32); CHLORIDE LEVEL 103 MEQ/L (98-107); CREATININE FOR GFR 0.95 MG/DL (0.55-1.30); GLOMERULAR FILTRATION RATE 59.7 (>32); GLUCOSE, FASTING 86 MG/DL (70-100); SODIUM LEVEL 141 MEQ/L (136-145)
== END ==
LOC: M LAB REF 15:48
DX: E87.5 Hyperkalemia (principal)
CPT/HCPCS: 80048

== ENCOUNTER → 2018-03-05 | Outpatient (REF) | payer MEDICARE, BC ==
[2018-03-05 20:23] LABS: IRON (FE) 22 UG/DL (50-170); PERCENT SATURATION 5.3 % (13.2-45.0); TOTAL IRON BINDING CAPACITY 419 UG/DL (250-450)
== END ==
LOC: M LAB REF 20:05
DX: D64.9 Anemia, unspecified (principal)
CPT/HCPCS: 83550

== ENCOUNTER 2018-03-22 02:15 | Inpatient (IN) | payer MEDICARE, BC ==
[2018-03-22 04:25] LABS: BASO # 0.1 10^3/uL (0.0-0.2); BASO % 1.1 % (0.0-1.0); EOS # 0.1 10^3/uL (0.0-0.50); EOS % 0.8 % (0.0-3.0); HEMATOCRIT 30.1 % (36.0-47.0); HEMOGLOBIN 9.1 g/dl (12.0-15.5); IMMATURE GRANULOCYTE % 0.4 % (0-3.0); LYMPH # 1.4 10^3/uL (1.5-4.5); LYMPH % 15.7 % (24.0-44.0); MEAN CORPUSCULAR HEMOGLOBIN 24.4 pg (27.0-33.0); MEAN CORPUSCULAR HGB CONC 30.2 g/dl (32.0-36.5); MEAN CORPUSCULAR VOLUME 80.7 fl (80.0-96.0); MONO # 0.7 10^3/uL (0.0-0.8); MONO % 8.3 % (0.0-5.0); NEUTROPHILS # 6.6 10^3/uL (1.8-7.7); NEUTROPHILS % 73.7 % (36.0-66.0); PLATELET COUNT, AUTOMATED 391 10^3/uL (150-450); RED BLOOD COUNT 3.73 10^6/uL (4.00-5.40); RED CELL DISTRIBUTION WIDTH 14.2 % (11.5-14.5); WHITE BLOOD COUNT 8.9 10^3/uL (4.0-10.0)
[2018-03-22 04:39] LABS: INR 1.09; PROTHROMBIN TIME 14.3 SECONDS (12.1-14.4)
[2018-03-22 04:40] LABS: PARTIAL THROMBOPLASTIN TIME 36.7 SECONDS (25.4-37.6)
[2018-03-22 05:02] LABS: ANION GAP 10 MEQ/L (8-16); BLOOD UREA NITROGEN 12 MG/DL (7-18); CALCIUM LEVEL 8.9 MG/DL (8.8-10.2); CARBON DIOXIDE LEVEL 28 MEQ/L (21-32); CHLORIDE LEVEL 103 MEQ/L (98-107); CPK CREATINE PHOSPHOKINASE 95 U/L (26-192); CREATININE FOR GFR 0.91 MG/DL (0.55-1.30); GLOMERULAR FILTRATION RATE > 60.0 (>32); GLUCOSE, FASTING 104 MG/DL (70-100); POTASSIUM SERUM 4.2 MEQ/L (3.5-5.1); SODIUM LEVEL 141 MEQ/L (136-145); TROPONIN I < 0.02 NG/ML (< 0.10)
[2018-03-22 05:07] LABS: CK-MB VALUE MASS < 1.0 NG/ML (<3.6); MB/CK RELATIVE INDEX 1.05 (< OR =4)
[2018-03-22 06:34] LABS: KETONE, URINE AUTO RFX NEGATIVE (NEGATIVE); NITRITE, URINE AUTO RFX NEGATIVE (NEGATIVE); RBC, URINE AUTO RFX 3 /HPF (0-3); SPECIFIC GRAVITY UR AUTO RFX 1.018 (1.002-1.035); SQUAM EPITHELIAL CELL UR AURFX 4 /HPF (0-6)
[2018-03-22 06:37] LABS: LEUKOCYTE ESTERASE UR AUTO RFX 3+ (NEGATIVE); WBC, URINE AUTO RFX 31 /HPF (0-3)
[2018-03-22] MEDS: ENOXAPARIN 40 MG/0.4 ML SYRINGE (J1650) SC (08:59)
[2018-03-22] MEDS ORDERED: SLF 3 ML SYR IV (10:45)
[2018-03-22] MEDS ORDERED: ANUSOL HC 25MG SUPP PR (12:00)
[2018-03-22] MEDS ORDERED: MIRALAX *UNIT DOSE* 17GM PACKET PO (12:00)
[2018-03-22] MEDS: SENOKOT S TAB PO ×2 (12:00→21:03)
[2018-03-22] MEDS ORDERED: SENOKOT S TAB PO (12:00)
[2018-03-22] MEDS: DOCUSATE SODIUM 100 MG CAP PO ×2 (12:00→21:03)
[2018-03-22] MEDS ORDERED: DOCUSATE SODIUM 100 MG CAP PO ×2 (12:00→21:00)
[2018-03-22] MEDS: FUROSEMIDE 40 MG TAB PO (13:21)
[2018-03-22] MEDS: PANTOPRAZOLE 40MG TAB (PROTONIX) PO (13:21)
[2018-03-22] MEDS: POTASSIUM CHLORIDE 10 MEQ SR TABLET PO (13:22)
[2018-03-22] MEDS: SLF 3 ML SYR IV ×2 (13:22→21:18)
[2018-03-22] MEDS: VITAMIN D 1,000 INTERNATIONAL UNITS TABLET PO (13:22)
[2018-03-22] MEDS: LEVOTHYROXINE 112MCG TABLET (0.112MG) PO (14:38)
[2018-03-22] MEDS: diltiaZEM **CD** 180 MG CAP PO (21:03)
[2018-03-22 23:48] LABS: APPEARANCE, URINE CLOUDY (CLEAR); BACTERIA, URINE AUTO 1+ (NEGATIVE); BILIRUBIN, URINE AUTO NEGATIVE (NEGATIVE); BLOOD, URINE BLOOD 1+ (NEGATIVE); COLOR, URINE YELLOW (YELLOW); GLUCOSE, URINE (UA) AUTO NEGATIVE (NEGATIVE); KETONE, URINE AUTO NEGATIVE (NEGATIVE); LEUKOCYTE ESTERASE, URINE AUTO 3+ (NEGATIVE); MUCUS, URINE SMALL (NEGATIVE); NITRITE, URINE AUTO NEGATIVE (NEGATIVE); PROTEIN, URINE AUTO NEGATIVE (NEGATIVE); RBC, URINE AUTO 4 /HPF (0-3); SPECIFIC GRAVITY URINE AUTO 1.016 (1.002-1.035); SQUAMOUS EPITHELIAL CELL UR AU 20 /HPF (0-6); WBC, URINE AUTO 60 /HPF (0-3)
[2018-03-23] MEDS: ACETAMINOPHEN TAB 650MG DOSE (2X325MG) PO (04:08)
[2018-03-23] MEDS: LEVOTHYROXINE 112MCG TABLET (0.112MG) PO (06:28)
[2018-03-23] MEDS: SLF 3 ML SYR IV ×3 (06:28→21:04)
[2018-03-23 07:09] LABS: HEMATOCRIT 28.3 % (36.0-47.0); HEMOGLOBIN 8.6 g/dl (12.0-15.5); MEAN CORPUSCULAR HEMOGLOBIN 24.4 pg (27.0-33.0); MEAN CORPUSCULAR HGB CONC 30.4 g/dl (32.0-36.5); MEAN CORPUSCULAR VOLUME 80.2 fl (80.0-96.0); PLATELET COUNT, AUTOMATED 366 10^3/uL (150-450); RED BLOOD COUNT 3.53 10^6/uL (4.00-5.40); RED CELL DISTRIBUTION WIDTH 14.4 % (11.5-14.5); WHITE BLOOD COUNT 5.3 10^3/uL (4.0-10.0)
[2018-03-23 07:27] LABS: ANION GAP 7 MEQ/L (8-16); BLOOD UREA NITROGEN 10 MG/DL (7-18); CALCIUM LEVEL 8.8 MG/DL (8.8-10.2); CARBON DIOXIDE LEVEL 31 MEQ/L (21-32); CHLORIDE LEVEL 104 MEQ/L (98-107); CREATININE FOR GFR 0.95 MG/DL (0.55-1.30); GLOMERULAR FILTRATION RATE 59.7 (>32); GLUCOSE, FASTING 92 MG/DL (70-100); POTASSIUM SERUM 3.8 MEQ/L (3.5-5.1); SODIUM LEVEL 142 MEQ/L (136-145)
[2018-03-23] MEDS: ENOXAPARIN 40 MG/0.4 ML SYRINGE (J1650) SC (09:37)
[2018-03-23] MEDS: NS 1,000 ML IV (09:37)
[2018-03-23] MEDS: VITAMIN D 1,000 INTERNATIONAL UNITS TABLET PO (09:37)
[2018-03-23] MEDS: POTASSIUM CHLORIDE 10 MEQ SR TABLET PO (09:38)
[2018-03-23] MEDS: PANTOPRAZOLE 40MG TAB (PROTONIX) PO (09:38)
[2018-03-23 10:32] LABS: KETONE, URINE AUTO RFX TRACE mg/dL (NEGATIVE); MUCUS, URINE RFX SMALL (NEGATIVE); NITRITE, URINE AUTO RFX NEGATIVE (NEGATIVE); RBC, URINE AUTO RFX 3 /HPF (0-3); SPECIFIC GRAVITY UR AUTO RFX 1.027 (1.002-1.035); SQUAM EPITHELIAL CELL UR AURFX 11 /HPF (0-6); TRANSITIONAL EPITHELIAL AU RFX 1 /HPF
[2018-03-23 10:33] LABS: LEUKOCYTE ESTERASE UR AUTO RFX 3+ (NEGATIVE); WBC, URINE AUTO RFX 72 /HPF (0-3)
[2018-03-23] MEDS: diltiaZEM **CD** 180 MG CAP PO (20:15)
[2018-03-23] MEDS: SENOKOT S TAB PO (20:16)
[2018-03-23] MEDS: DOCUSATE SODIUM 100 MG CAP PO (20:16)
[2018-03-24] MEDS: ACETAMINOPHEN TAB 650MG DOSE (2X325MG) PO (00:14)
[2018-03-24] MEDS: diltiaZEM **CD** 180 MG CAP PO ×2 (00:21→21:22)
[2018-03-24] MEDS: SLF 3 ML SYR IV ×3 (05:01→21:24)
[2018-03-24] MEDS: LEVOTHYROXINE 112MCG TABLET (0.112MG) PO (05:15)
[2018-03-24 05:36] LABS: HEMATOCRIT 27.5 % (36.0-47.0); HEMOGLOBIN 8.3 g/dl (12.0-15.5); MEAN CORPUSCULAR HEMOGLOBIN 24.9 pg (27.0-33.0); MEAN CORPUSCULAR HGB CONC 30.2 g/dl (32.0-36.5); MEAN CORPUSCULAR VOLUME 82.6 fl (80.0-96.0); PLATELET COUNT, AUTOMATED 338 10^3/uL (150-450); RED BLOOD COUNT 3.33 10^6/uL (4.00-5.40); RED CELL DISTRIBUTION WIDTH 14.6 % (11.5-14.5); WHITE BLOOD COUNT 5.3 10^3/uL (4.0-10.0)
[2018-03-24 05:49] LABS: ANION GAP 7 MEQ/L (8-16); BLOOD UREA NITROGEN 11 MG/DL (7-18); CALCIUM LEVEL 8.5 MG/DL (8.8-10.2); CARBON DIOXIDE LEVEL 28 MEQ/L (21-32); CHLORIDE LEVEL 108 MEQ/L (98-107); CREATININE FOR GFR 0.76 MG/DL (0.55-1.30); GLOMERULAR FILTRATION RATE > 60.0 (>32); GLUCOSE, FASTING 88 MG/DL (70-100); POTASSIUM SERUM 3.8 MEQ/L (3.5-5.1); SODIUM LEVEL 143 MEQ/L (136-145)
[2018-03-24] MEDS: POTASSIUM CHLORIDE 10 MEQ SR TABLET PO (09:18)
[2018-03-24] MEDS: PANTOPRAZOLE 40MG TAB (PROTONIX) PO (09:18)
[2018-03-24] MEDS: VITAMIN D 1,000 INTERNATIONAL UNITS TABLET PO (09:18)
[2018-03-24] MEDS: ENOXAPARIN 40 MG/0.4 ML SYRINGE (J1650) SC (09:18)
[2018-03-24 13:53] LABS: CALCIUM OXALATE CRYSTALS RFX MODERATE; KETONE, URINE AUTO RFX TRACE mg/dL (NEGATIVE); LEUKOCYTE ESTERASE UR AUTO RFX 3+ (NEGATIVE); MUCUS, URINE RFX SMALL (NEGATIVE); NITRITE, URINE AUTO RFX NEGATIVE (NEGATIVE); RBC, URINE AUTO RFX 15 /HPF (0-3); SPECIFIC GRAVITY UR AUTO RFX 1.027 (1.002-1.035); SQUAM EPITHELIAL CELL UR AURFX 30 /HPF (0-6); TRANSITIONAL EPITHELIAL AU RFX 1 /HPF; WBC, URINE AUTO RFX 83 /HPF (0-3)
[2018-03-24] MEDS: SENOKOT S TAB PO (21:19)
[2018-03-24] MEDS: DOCUSATE SODIUM 100 MG CAP PO (21:19)
[2018-03-25] MEDS: ACETAMINOPHEN TAB 650MG DOSE (2X325MG) PO (01:21)
[2018-03-25] MEDS: SLF 3 ML SYR IV ×3 (05:06→21:11)
[2018-03-25] MEDS: LEVOTHYROXINE 112MCG TABLET (0.112MG) PO (05:11)
[2018-03-25 05:22] LABS: HEMATOCRIT 27.1 % (36.0-47.0); HEMOGLOBIN 8.1 g/dl (12.0-15.5); MEAN CORPUSCULAR HEMOGLOBIN 24.6 pg (27.0-33.0); MEAN CORPUSCULAR HGB CONC 29.9 g/dl (32.0-36.5); MEAN CORPUSCULAR VOLUME 82.4 fl (80.0-96.0); PLATELET COUNT, AUTOMATED 330 10^3/uL (150-450); RED BLOOD COUNT 3.29 10^6/uL (4.00-5.40); RED CELL DISTRIBUTION WIDTH 14.6 % (11.5-14.5); WHITE BLOOD COUNT 5.3 10^3/uL (4.0-10.0)
[2018-03-25 05:38] LABS: ANION GAP 7 MEQ/L (8-16); BLOOD UREA NITROGEN 11 MG/DL (7-18); CALCIUM LEVEL 8.6 MG/DL (8.8-10.2); CARBON DIOXIDE LEVEL 27 MEQ/L (21-32); CHLORIDE LEVEL 108 MEQ/L (98-107); GLOMERULAR FILTRATION RATE > 60.0 (>32); GLUCOSE, FASTING 83 MG/DL (70-100); POTASSIUM SERUM 4.1 MEQ/L (3.5-5.1); SODIUM LEVEL 142 MEQ/L (136-145)
[2018-03-25] MEDS: CIPROFLOXACIN 250 MG TAB PO ×2 (08:20→18:29)
[2018-03-25] MEDS: PANTOPRAZOLE 40MG TAB (PROTONIX) PO (08:20)
[2018-03-25] MEDS: VITAMIN D 1,000 INTERNATIONAL UNITS TABLET PO (08:21)
[2018-03-25] MEDS: POTASSIUM CHLORIDE 10 MEQ SR TABLET PO (08:21)
[2018-03-25] MEDS: ENOXAPARIN 40 MG/0.4 ML SYRINGE (J1650) SC (08:21)
[2018-03-25 09:09] LABS: REASON FOR REVIEW RBC MORPHOLOGY; SLIDE REVIEW Report; SOURCE PERIPHERAL SMEAR
[2018-03-25] MEDS: FUROSEMIDE 40 MG TAB PO (09:53)
[2018-03-25 10:26] LABS: RETIC HEMOGLOBIN EQUIVALENT 34.4 pg (24-36); RETICULOCYTE # 64.2 10^9/L (17-77)
[2018-03-25 10:39] LABS: FERRITIN 367 NG/ML (8-252); LDH LACTATE DEHYDROGENASE 195 U/L (84-246); TOTAL PROTEIN 6.1 GM/DL (6.4-8.2)
[2018-03-25] MEDS: NS 500 ML IV (13:15)
[2018-03-25] MEDS: diltiaZEM **CD** 180 MG CAP PO (21:09)
[2018-03-25] MEDS: DOCUSATE SODIUM 100 MG CAP PO (21:09)
[2018-03-25] MEDS: SENOKOT S TAB PO (21:09)
[2018-03-26] MEDS: SLF 3 ML SYR IV ×3 (05:58→21:48)
[2018-03-26] MEDS: LEVOTHYROXINE 112MCG TABLET (0.112MG) PO (06:06)
[2018-03-26] MEDS: CIPROFLOXACIN 250 MG TAB PO ×2 (06:07→17:53)
[2018-03-26 06:39] LABS: HEMATOCRIT 27.7 % (36.0-47.0); HEMOGLOBIN 8.3 g/dl (12.0-15.5); MEAN CORPUSCULAR HEMOGLOBIN 24.6 pg (27.0-33.0); PLATELET COUNT, AUTOMATED 357 10^3/uL (150-450); RED BLOOD COUNT 3.38 10^6/uL (4.00-5.40); RED CELL DISTRIBUTION WIDTH 15.2 % (11.5-14.5); WHITE BLOOD COUNT 6.7 10^3/uL (4.0-10.0)
[2018-03-26 07:09] LABS: ANION GAP 5 MEQ/L (8-16); BLOOD UREA NITROGEN 9 MG/DL (7-18); CALCIUM LEVEL 8.6 MG/DL (8.8-10.2); CARBON DIOXIDE LEVEL 30 MEQ/L (21-32); CHLORIDE LEVEL 106 MEQ/L (98-107); CREATININE FOR GFR 0.86 MG/DL (0.55-1.30); GLOMERULAR FILTRATION RATE > 60.0 (>32); GLUCOSE, FASTING 82 MG/DL (70-100); POTASSIUM SERUM 3.9 MEQ/L (3.5-5.1); SODIUM LEVEL 141 MEQ/L (136-145)
[2018-03-26 08:06] LABS: HAPTOGLOBIN 236 mg/dL (34-200)
[2018-03-26 08:06] LABS: TRANSFERRIN 267 mg/dL (200-370)
[2018-03-26] MEDS: POTASSIUM CHLORIDE 10 MEQ SR TABLET PO (08:22)
[2018-03-26] MEDS: FUROSEMIDE 40 MG TAB PO (08:22)
[2018-03-26] MEDS: VITAMIN D 1,000 INTERNATIONAL UNITS TABLET PO (08:22)
[2018-03-26] MEDS: PANTOPRAZOLE 40MG TAB (PROTONIX) PO (08:22)
[2018-03-26] MEDS: ENOXAPARIN 40 MG/0.4 ML SYRINGE (J1650) SC (08:23)
[2018-03-26 12:59] LABS: FOLATE 11.4 NG/ML
[2018-03-26] MEDS: SENOKOT S TAB PO (21:00)
[2018-03-26] MEDS: DOCUSATE SODIUM 100 MG CAP PO (22:00)
[2018-03-26] MEDS: diltiaZEM **CD** 180 MG CAP PO (22:01)
[2018-03-27] MEDS: CIPROFLOXACIN 250 MG TAB PO (06:32)
[2018-03-27] MEDS: LEVOTHYROXINE 112MCG TABLET (0.112MG) PO (06:32)
[2018-03-27] MEDS: SLF 3 ML SYR IV ×2 (06:32→14:00)
[2018-03-27 06:53] LABS: HEMOGLOBIN 8.3 g/dl (12.0-15.5); MEAN CORPUSCULAR HEMOGLOBIN 24.9 pg (27.0-33.0); MEAN CORPUSCULAR HGB CONC 30.7 g/dl (32.0-36.5); MEAN CORPUSCULAR VOLUME 81.1 fl (80.0-96.0); PLATELET COUNT, AUTOMATED 318 10^3/uL (150-450); RED BLOOD COUNT 3.33 10^6/uL (4.00-5.40); RED CELL DISTRIBUTION WIDTH 15.6 % (11.5-14.5); WHITE BLOOD COUNT 5.4 10^3/uL (4.0-10.0)
[2018-03-27 07:14] LABS: ANION GAP 4 MEQ/L (8-16); BLOOD UREA NITROGEN 8 MG/DL (7-18); CALCIUM LEVEL 8.7 MG/DL (8.8-10.2); CARBON DIOXIDE LEVEL 30 MEQ/L (21-32); CHLORIDE LEVEL 106 MEQ/L (98-107); CREATININE FOR GFR 0.78 MG/DL (0.55-1.30); GLOMERULAR FILTRATION RATE > 60.0 (>32); GLUCOSE, FASTING 87 MG/DL (70-100); POTASSIUM SERUM 3.8 MEQ/L (3.5-5.1); SODIUM LEVEL 140 MEQ/L (136-145)
[2018-03-27] MEDS: POTASSIUM CHLORIDE 10 MEQ SR TABLET PO (09:36)
[2018-03-27] MEDS: VITAMIN D 1,000 INTERNATIONAL UNITS TABLET PO (09:36)
[2018-03-27] MEDS: PANTOPRAZOLE 40MG TAB (PROTONIX) PO (09:36)
[2018-03-27] MEDS: FUROSEMIDE 40 MG TAB PO (09:37)
[2018-03-27] MEDS: ENOXAPARIN 40 MG/0.4 ML SYRINGE (J1650) SC (09:38)
[2018-03-27 12:10] LABS: BEDSIDE GLUCOSE 112 MG/DL (83-110)
[2018-03-27 16:13] LABS: ALBUMIN 3.52 GM/DL (3.29-5.55); ALBUMIN % 53.3 % (55.8-66.1); ALPHA-1-GLOBULIN % 6.1 % (2.9-4.9); ALPHA-2-GLOBULINS % 15.2 % (7.1-11.8); BETA-1-GLOBULINS 0.46 GM/DL (0.28-0.60); BETA-2-GLOBULINS 0.37 GM/DL (0.19-0.55); BETA-2-GLOBULINS % 5.6 % (3.2-6.5); GAMMA GLOBULIN % 12.8 % (11.1-18.8); GAMMA GLOBULINS 0.84 GM/DL (0.65-1.58)
[2018-03-29 08:06] LABS: HOMOCYST(E)INE SERUM 11.6 umol/L (0.0-15.0); Methylmalonic Acid 159 nmol/L (0-378)
[2018-03-29 08:06] LABS: VITAMIN B1 LEVEL WHOLE BLOOD 85.2 nmol/L (66.5-200.0)
== END 2018-03-27 15:07 | disposition home or self-care (01) | DRG 312 ==
LOC: M MS4PR 03-26 18:00 → M ED 02:15 → M ED INP 05:41 → M ICU 09:53 → M PCU 15:40
DX: I95.2 Hypotension due to drugs (principal); R55 Syncope and collapse; I10 Essential (primary) hypertension; T45.4X5A Adverse effect of iron and its compounds, initial encounter; N30.90 Cystitis, unspecified without hematuria; E78.5 Hyperlipidemia, unspecified; E03.9 Hypothyroidism, unspecified; I27.20 Pulmonary hypertension, unspecified; D50.9 Iron deficiency anemia, unspecified; Z90.49 Acquired absence of other specified parts of digestive tract; Z88.0 Allergy status to penicillin; Z88.1 Allergy status to other antibiotic agents; Z88.5 Allergy status to narcotic agent; Z87.891 Personal history of nicotine dependence; Z79.82 Long term (current) use of aspirin; Z79.899 Other long term (current) drug therapy

== ENCOUNTER → 2018-06-03 | Outpatient (REF) | payer MEDICARE, BC ==
[2018-06-03 13:20] LABS: TOTAL PROTEIN 6.6 GM/DL (6.4-8.2)
[2018-06-03 13:23] LABS: TOTAL PROTEIN,RANDOM URINE 14.1 MG/DL (0.0-12.0)
[2018-06-04 13:40] LABS: ALBUMIN 3.77 GM/DL (3.29-5.55); ALBUMIN % 57.1 % (55.8-66.1); ALPHA-1-GLOBULIN % 5.2 % (2.9-4.9); ALPHA-1-GLOBULINS 0.34 GM/DL (0.17-0.41); ALPHA-2-GLOBULINS 0.84 GM/DL (0.42-0.99); ALPHA-2-GLOBULINS % 12.7 % (7.1-11.8); BETA-1-GLOBULINS 0.48 GM/DL (0.28-0.60); BETA-1-GLOBULINS % 7.2 % (4.7-7.2); BETA-2-GLOBULINS 0.35 GM/DL (0.19-0.55); BETA-2-GLOBULINS % 5.3 % (3.2-6.5); GAMMA GLOBULIN % 12.5 % (11.1-18.8); GAMMA GLOBULINS 0.83 GM/DL (0.65-1.58)
== END ==
LOC: M LAB REF 11:47
DX: D64.9 Anemia, unspecified (principal)
CPT/HCPCS: 84165

== ENCOUNTER 2018-11-17 12:08 | Emergency (ER) | payer MEDICARE, BC ==
[~2018-11-17] VITALS: Ht 160 cm; Wt 69.5 kg
[~2018-11-17 12:08] MED LIST changes: +ANUC25SU PR; +ANUSHCSU PR; +ASPI-222 PO; +ASPI81TA83 PO; +Acetaminophen Tab PO; -BISACODYL 10 MG SUPP PR; +CALTRATE PO; +COLA100C2 PO; +DILT180C28 PO; +DILT1CAP3 PO; +DILTIAZEM PO; +DOCU100C16 PO; +FAMO20TA PO; +FURO40TA2 PO; +HYDR25TA6 PO; +KLOR10TA76 PO; +LASI40TA9 PO; +LEVO100T PO; +LEVO112T25 PO; +LEVO250T12 PO; +LOVE1INJ SC; +MIRA3350 PO; -MOM 30ML SUSPENSION UDC PO; -ONDANSETRON 4 MG TAB (S0181) PO; -ONDANSETRON 4MG/2ML VIAL (J2405) IM; +PANT40TA3 PO; +PEG1POW PO; +PERCOCET PO; +SENN18TA PO; +SENN1TAB40 PO; +SENO8.6T5 PO; +SYNT112T2 PO; +VITA-121 PO; +VITA100066 PO; +[UNRECOGNIZED DRUG - OTHER] PO
[2018-11-17] MEDS ORDERED: ASPI81TA85 PO (12:16)
[2018-11-17] MEDS ORDERED: D 101000 PO (12:16)
[2018-11-17] MEDS ORDERED: ACETAMINOPHEN TAB 650MG DOSE (2X325MG) PO ONE (13:15)
[2018-11-17 13:33] LABS: BASO # 0.1 10^3/uL (0.0-0.2); BASO % 0.7 % (0.0-1.0); EOS # 0.1 10^3/uL (0.0-0.50); EOS % 0.7 % (0.0-3.0); HEMATOCRIT 34.1 % (36.0-47.0); HEMOGLOBIN 10.6 g/dl (12.0-15.5); LYMPH # 1.4 10^3/uL (1.5-4.5); MEAN CORPUSCULAR HGB CONC 31.1 g/dl (32.0-36.5); MONO # 0.9 10^3/uL (0.0-0.8); MONO % 9.7 % (0.0-5.0); NEUTROPHILS # 6.5 10^3/uL (1.8-7.7); NEUTROPHILS % 72.6 % (36.0-66.0); PLATELET COUNT, AUTOMATED 464 10^3/uL (150-450); RED BLOOD COUNT 3.92 10^6/uL (4.00-5.40); WHITE BLOOD COUNT 8.9 10^3/uL (4.0-10.0)
[2018-11-17 13:54] LABS: ALBUMIN 2.7 GM/DL (3.2-5.2); ALT/SGPT 48 U/L (12-78); BILIRUBIN,DIRECT 0.1 MG/DL (0.0-0.2); BILIRUBIN,TOTAL 0.5 MG/DL (0.2-1.0); BLOOD UREA NITROGEN 10 MG/DL (7-18); CALCIUM LEVEL 7.9 MG/DL (8.8-10.2); CARBON DIOXIDE LEVEL 31 MEQ/L (21-32); CHLORIDE LEVEL 98 MEQ/L (98-107); CK-MB VALUE MASS < 1.0 NG/ML (<3.6); CPK CREATINE PHOSPHOKINASE 66 U/L (26-192); CREATININE FOR GFR 0.92 MG/DL (0.55-1.30); GLOMERULAR FILTRATION RATE > 60.0 (>32); GLUCOSE, FASTING 83 MG/DL (70-100); MB/CK RELATIVE INDEX 1.52 (< OR =4); NT-PRO BNP 336 PG/ML (<450); POTASSIUM SERUM 4.1 MEQ/L (3.5-5.1); SODIUM LEVEL 134 MEQ/L (136-145); TOTAL PROTEIN 6.7 GM/DL (6.4-8.2); TROPONIN I < 0.02 NG/ML (< 0.10)
[2018-11-17] MEDS ORDERED: FUROSEMIDE 40 MG/4 ML VIAL (J1940) IV ONE (14:00)
--- NOTE | 2018-11-17 14:10 | REP ---
PORTABLE CHEST: AP portable view of the chest is performed and compared to prior study of 03/22/2018. There is a moderate left pleural effusion with some mild adjacent parenchymal opacity. There is a small right pleural effusion with some minor adjacent parenchymal opacity. Cardiac silhouette appears prominent. There is calcification and tortuosity of the thoracic aorta. Electronically Signed by Mahendra Das MD 11/17/2018 03:01 P
[2018-11-17 15:30] VITALS: BP 127/67
--- NOTE | 2018-11-17 21:18 | ECGEPIP ---
Stationary ECG Study [facility] - ED Test Date: 2018-11-17 Pat Name: RUSSELL GARRETT Department: Room: - Gender: F [employer]: : 1935 Requested By: LUZ Nicholas Order Number: [id number] Reading MD: Татьяна Viveros Measurements Intervals Sylvia Rate: 84 P: 2 ME: 190 QRS: -24 QRSD: 92 T: 47 QT: 359 QTc: 426 Interpretive Statements SINUS RHYTHM BORDERLINE LEFT AXIS DEVIATION LOW QRS VOLTAGE IN PRECORDIAL LEADS NSTTW ABNORMALITY PRWP INCREASED RATE 03/22/18 Electronically Signed On 11-17-2018 21:18:27 EDT by Татьяна Viveros
== END 2018-11-17 16:11 | disposition home or self-care (01) ==
LOC: M ED 12:08
DX: R06.02 Shortness of breath (principal); I50.9 Heart failure, unspecified; J90 Pleural effusion, not elsewhere classified; E03.9 Hypothyroidism, unspecified; K21.9 Gastro-esophageal reflux disease without esophagitis; D50.9 Iron deficiency anemia, unspecified; Z79.899 Other long term (current) drug therapy; Z79.890 Hormone replacement therapy; Z79.82 Long term (current) use of aspirin; Z88.0 Allergy status to penicillin; Z88.1 Allergy status to other antibiotic agents; Z88.5 Allergy status to narcotic agent; Z91.040 Latex allergy status; Z91.048 Other nonmedicinal substance allergy status
CPT/HCPCS: 71045; 80048; 80076; 82550; 82553; 83605; 83880; 84484; 85025; 87040; 93005; 93041; 94760; 96374; 99285; J1940

== ENCOUNTER → 2018-12-10 | Outpatient (REF) | payer MEDICARE, BC ==
[~2018-12-10] MED LIST changes: +ASPI81TA85 PO; +D 101000 PO
[2018-12-10 14:16] LABS: TOTAL PROTEIN 7.1 GM/DL (6.4-8.2)
[2018-12-12 11:22] LABS: ALBUMIN % 53.5 % (55.8-66.1); ALPHA-1-GLOBULIN % 6.1 % (2.9-4.9); ALPHA-1-GLOBULINS 0.43 GM/DL (0.17-0.41); ALPHA-2-GLOBULINS % 14.1 % (7.1-11.8); BETA-1-GLOBULINS 0.55 GM/DL (0.28-0.60); BETA-1-GLOBULINS % 7.8 % (4.7-7.2); BETA-2-GLOBULINS 0.41 GM/DL (0.19-0.55); BETA-2-GLOBULINS % 5.8 % (3.2-6.5); GAMMA GLOBULIN % 12.7 % (11.1-18.8)
== END ==
LOC: M LAB REF 12:52
PROVIDERS: ATTEND Internal Medicine
DX: D64.9 Anemia, unspecified (principal)

== ENCOUNTER → 2019-11-20 | Outpatient (REF) | payer MEDICARE, BC ==
[~2019-11-20] MED LIST changes: -ASPI-222 PO; +ASPI-527 PO; +SENN-53 PO; -SENN1TAB40 PO
[2019-11-20 17:49] LABS: PERCENT SATURATION 2.9 % (13.2-45.0)
[2019-11-20 19:09] LABS: FOLATE 14.2 NG/ML
== END ==
LOC: M LAB REF 17:15
PROVIDERS: ATTEND Internal Medicine
DX: D50.9 Iron deficiency anemia, unspecified (principal)

== ENCOUNTER → 2019-12-08 | Outpatient (CLI) | payer MEDICARE, BC ==
[~2019-12-08] MED LIST changes: +FERR325T3 PO; +VITAD1000T PO
== END ==
LOC: M LABSMTC 12:27
PROVIDERS: ATTEND Anesthesiology
DX: Z01.812 Encounter for preprocedural laboratory examination (principal); Z11.59 Encounter for screening for other viral diseases

== ENCOUNTER 2019-12-11 12:19 | Day surgery (SDC) | payer MEDICARE, BC ==
[~2019-12-11] VITALS: Ht 160 cm; Wt 66.2 kg
[~2019-12-11 12:19] MED LIST changes: +NS 1,000 ML IV SCH
[2019-12-11] MEDS ORDERED: LIDOCAINE 2% 100MG/5ML SDV (FOR ANES.) As Ordered ONE (13:13)
[2019-12-11] MEDS ORDERED: fentaNYL 100 MCG/2 ML INJECTION (J3010) As Ordered ONE (13:13)
[2019-12-11] MEDS ORDERED: propofoL 200 MG/20 ML VIAL As Ordered ONE (13:13)
--- NOTE | 2019-12-11 13:19 | ROOR ---
Patient Name: Gina Lundberg Procedure Date: 12/11/2019 1:08 PM Date of : 1935 Age: 84 Room: [facility] Gender: Female Note Status: Finalized Procedure: Upper GI endoscopy Indications: Iron deficiency anemia Providers: José Miguel Ramey Jr, MD Referring MD: HAROLDO CHENG JR, MD Requesting Provider: Medicines: Propofol per Anesthesia Complications: No immediate complications. Procedure: Pre-Anesthesia Assessment: - Prior to the procedure, a History and Physical was performed, and patient medications and allergies were reviewed. The patient is competent. The risks and benefits of the procedure and the sedation options and risks were discussed with the patient. All questions were answered and informed consent was obtained. Patient identification and proposed procedure were verified by the physician and the nurse in the pre-procedure area and in the procedure room. Mental Status Examination: alert and oriented. Airway Examination: normal oropharyngeal airway and neck mobility. Respiratory Examination: clear to auscultation. CV Examination: normal. ASA Grade Assessment: II - A patient with mild systemic disease. After reviewing the risks and benefits, the patient was deemed in satisfactory condition to undergo the procedure. The anesthesia plan was to use moderate sedation / analgesia (conscious sedation). Immediately prior to administration of medications, the patient was re-assessed for adequacy to receive sedatives. The heart rate, respiratory rate, oxygen saturations, blood pressure, adequacy of pulmonary ventilation, and response to care were monitored throughout the procedure. The physical status of the patient was re-assessed after the procedure. The Endoscope was introduced through the mouth, and advanced to the second part of duodenum. The upper GI endoscopy was accomplished without difficulty. The patient tolerated the procedure well. Findings: The upper third of the esophagus, middle third of the esophagus and lower third of the esophagus were normal. The cardia, gastric fundus, gastric body and gastric antrum were normal. Localized mild inflammation characterized by congestion (edema), erythema, friability and granularity was found in the prepyloric region of the stomach. Biopsies were taken with a cold forceps for histology. The duodenal bulb, first portion of the duodenum and second portion of the duodenum were normal. Impression: - Normal upper third of esophagus, middle third of esophagus and lower third of esophagus. - Normal cardia, gastric fundus, gastric body and antrum. - Bile gastritis. Biopsied. - Normal duodenal bulb, first portion of the duodenum and second portion of the duodenum. Recommendation: - Discharge patient to home (ambulatory). - Return to my office as previously scheduled. José Miguel Ramey MD José Miguel Ramey Jr, MD 12/11/2019 1:19:24 PM Electronically signed by José Miguel Ramey Jr, MD Number of Addenda: 0 Note Initiated On: 12/11/2019 1:08 PM Estimated Blood Loss: Estimated blood loss: none.
--- NOTE | 2019-12-11 13:37 | ROOR ---
Patient Name: Gina Lundberg Procedure Date: 12/11/2019 1:08 PM Date of : 1935 Age: 84 Room: [facility] Gender: Female Note Status: Finalized Procedure: Colonoscopy Indications: Iron deficiency anemia Providers: José Miguel Ramey Jr, MD Referring MD: HAROLDO CHENG JR, MD Requesting Provider: Medicines: Propofol per Anesthesia Complications: No immediate complications. Procedure: Pre-Anesthesia Assessment: - Prior to the procedure, a History and Physical was performed, and patient medications and allergies were reviewed. The patient is competent. The risks and benefits of the procedure and the sedation options and risks were discussed with the patient. All questions were answered and informed consent was obtained. Patient identification and proposed procedure were verified by the physician and the nurse in the pre-procedure area and in the procedure room. Mental Status Examination: alert and oriented. Airway Examination: normal oropharyngeal airway and neck mobility. Respiratory Examination: clear to auscultation. CV Examination: normal. ASA Grade Assessment: III - A patient with severe systemic disease. After reviewing the risks and benefits, the patient was deemed in satisfactory condition to undergo the procedure. The anesthesia plan was to use moderate sedation / analgesia (conscious sedation). Immediately prior to administration of medications, the patient was re-assessed for adequacy to receive sedatives. The heart rate, respiratory rate, oxygen saturations, blood pressure, adequacy of pulmonary ventilation, and response to care were monitored throughout the procedure. The physical status of the patient was re-assessed after the procedure. The Colonoscope was introduced through the anus and advanced to the cecum, identified by appendiceal orifice and ileocecal valve. The colonoscopy was performed without difficulty. The patient tolerated the procedure well. The quality of the bowel preparation was adequate. Findings: The rectum, recto-sigmoid colon, descending colon, transverse colon, ascending colon, appendiceal orifice and ileocecal valve appeared normal. A diminutive polyp was found in the cecum. The polyp was sessile. The polyp was removed with a cold snare. Resection and retrieval were complete. Bleeding external and internal hemorrhoids were found during perianal exam and during endoscopy. The hemorrhoids were Grade III (internal hemorrhoids that prolapse but require manual reduction) and Grade IV (internal hemorrhoids that prolapse and cannot be reduced manually). Mild rectal prolapse was present. Impression: - The rectum, recto-sigmoid colon, descending colon, transverse colon, ascending colon, appendiceal orifice and ileocecal valve are normal. - One diminutive polyp in the cecum, removed with a cold snare. Resected and retrieved. - Bleeding external and internal hemorrhoids. - Rectal prolapse. Recommendation: - Discharge patient to home (ambulatory). - Return to my office at appointment to be scheduled. José Miguel Ramey MD José Miguel Ramey Jr, MD 12/11/2019 1:37:42 PM Electronically signed by José Miguel Ramey Jr, MD Number of Addenda: 0 Note Initiated On: 12/11/2019 1:08 PM Estimated Blood Loss: Estimated blood loss: none.
[2019-12-11 14:20] VITALS: BP 163/79
== END 2019-12-11 14:24 | disposition home or self-care (01) ==
LOC: M OPP 12:19
PROVIDERS: ATTEND Surgery
DX: K63.5 Polyp of colon (principal); K64.3 Fourth degree hemorrhoids; K62.3 Rectal prolapse; D50.9 Iron deficiency anemia, unspecified; K29.60 Other gastritis without bleeding; I10 Essential (primary) hypertension; E03.9 Hypothyroidism, unspecified; Z79.82 Long term (current) use of aspirin; Z79.891 Long term (current) use of opiate analgesic; Z79.899 Other long term (current) drug therapy; Z88.2 Allergy status to sulfonamides; Z88.5 Allergy status to narcotic agent; Z88.0 Allergy status to penicillin; Z88.8 Allergy status to other drugs, medicaments and biological substances; Z91.040 Latex allergy status; Z91.048 Other nonmedicinal substance allergy status; Z87.891 Personal history of nicotine dependence
CPT/HCPCS: 43239; 45385; 88305; J3010

== ENCOUNTER → 2020-05-24 | Outpatient (REF) | payer MEDICARE, BC ==
[~2020-05-24] MED LIST changes: -ASPI81TA85 PO; +ASPI81TA86 PO; +D31000TA2 PO; -NS 1,000 ML IV SCH; +PANT40TA29 PO; -PANT40TA3 PO; -VITAD1000T PO
[2020-05-24 14:43] LABS: PERCENT SATURATION 16.7 % (13.2-45.0)
== END ==
LOC: M LAB REF 12:10
PROVIDERS: ATTEND Internal Medicine
DX: D50.9 Iron deficiency anemia, unspecified (principal)

== ENCOUNTER → 2020-12-02 | Outpatient (REF) | payer MEDICARE, BC ==
[~2020-12-02] MED LIST changes: -PEG1POW PO; +POLY17PO18 PO
[2020-12-02 13:24] LABS: PERCENT SATURATION 21.9 % (13.2-45.0)
[2020-12-02 13:37] LABS: FOLATE 8.3 NG/ML
== END ==
LOC: M LAB REF 12:09
PROVIDERS: ATTEND Internal Medicine
DX: D50.9 Iron deficiency anemia, unspecified (principal); R41.3 Other amnesia

== ENCOUNTER → 2021-06-13 | Outpatient (REF) | payer MEDICARE, BC ==
[~2021-06-13] MED LIST changes: -KLOR10TA76 PO; -LEVO250T12 PO; +LEVO250T3 PO; +POTA-136 PO
[2021-06-13 12:36] LABS: PERCENT SATURATION 23.8 % (13.2-45.0)
== END ==
LOC: M LAB REF 11:23
PROVIDERS: ATTEND Internal Medicine
DX: D50.9 Iron deficiency anemia, unspecified (principal)

== ENCOUNTER → 2021-12-26 | Outpatient (REF) | payer MEDICARE, BC ==
[~2021-12-26] MED LIST changes: -D31000TA2 PO; +VITA100093 PO
[2021-12-26 14:36] LABS: PERCENT SATURATION 23.1 % (13.2-45.0)
== END ==
LOC: M LAB REF 12:31
PROVIDERS: ATTEND Internal Medicine
DX: D50.9 Iron deficiency anemia, unspecified (principal)

== ENCOUNTER → 2022-03-05 | Outpatient (REF) | payer MEDICARE, BC ==
[~2022-03-05] MED LIST changes: +LEVO1TAB38 PO; -LEVO250T3 PO
== END ==
LOC: M LAB REF 13:51
PROVIDERS: ATTEND Physician Assistant Medical
DX: N39.0 Urinary tract infection, site not specified (principal)

== ENCOUNTER → 2022-04-19 | Outpatient (REF) | payer MEDICARE, BC | LOC: M LAB REF 12:18 | PROVIDERS: ATTEND Internal Medicine | DX: Z11.1 Encounter for screening for respiratory tuberculosis (principal) ==

== ENCOUNTER → 2022-09-14 | Outpatient (REF) | payer MEDICARE, BC ==
[2022-09-14 12:45] LABS: AMORPHOUS SEDIMENT SMALL (NEGATIVE); BACTERIA, URINE AUTO NEGATIVE (NEGATIVE); CALCIUM OXALATE CRYSTALS LARGE; MUCUS, URINE SMALL (NEGATIVE); RBC, URINE AUTO 28 /HPF (0-3); SQUAMOUS EPITHELIAL CELL UR AU 77 /HPF (0-6); TRANSITIONAL EPITHELIAL AUTO 1 /HPF; WBC, URINE AUTO 72 /HPF (0-3)
== END ==
PROVIDERS: ATTEND Internal Medicine
DX: R41.0 Disorientation, unspecified (principal)

== ENCOUNTER → 2022-12-18 | Outpatient (REF) | payer MEDICARE, BC ==
[~2022-12-18] MED LIST changes: +DILT180C38 PO; -DILT1CAP3 PO
[2022-12-18 13:34] LABS: THYROID STIMULATING HORMONE 0.402 uIU/ML (0.55-4.78)
[2022-12-18 13:35] LABS: FREE T4 1.52 NG/DL (0.89-1.76)
== END ==
PROVIDERS: ATTEND Internal Medicine
DX: E03.9 Hypothyroidism, unspecified (principal)

== ENCOUNTER → 2023-02-07 | Outpatient (REF) | payer MEDICARE, BC ==
[~2023-02-07] MED LIST changes: +SENN-111 PO; -SENN18TA PO
[2023-02-07 08:32] LABS: BASO # 0.1 10^3/uL (0.0-0.2); BASO % 1.4 % (0.0-1.0); EOS # 0.1 10^3/uL (0.0-0.5); EOS % 1.4 % (0.0-3.0); HEMATOCRIT 41.6 % (36.0-47.0); HEMOGLOBIN 13.2 g/dl (12.0-15.5); LYMPH # 2.4 10^3/uL (1.5-5.0); LYMPH % 37.9 % (24.0-44.0); MEAN CORPUSCULAR HGB CONC 31.7 g/dl (32.0-36.5); MEAN CORPUSCULAR VOLUME 91.4 fl (80.0-96.0); MONO # 0.5 10^3/uL (0.0-0.8); MONO % 7.5 % (2.0-8.0); NEUTROPHILS # 3.2 10^3/uL (1.5-8.5); NEUTROPHILS % 51.5 % (36.0-66.0); PLATELET COUNT, AUTOMATED 272 10^3/uL (150-450); RED BLOOD COUNT 4.55 10^6/uL (4.00-5.40); WHITE BLOOD COUNT 6.3 10^3/uL (4.0-10.0)
[2023-02-07 08:57] LABS: ALBUMIN 3.1 G/DL (3.2-5.2); ALKALINE PHOSPHATASE 263 U/L (46-116); ALT/SGPT 25 U/L (7.0-40); AST/SGOT 14 U/L (<34); BILIRUBIN,TOTAL 0.6 MG/DL (0.3-1.2); BLOOD UREA NITROGEN 9 MG/DL (9-23); CALCIUM LEVEL 8.8 MG/DL (8.3-10.6); CARBON DIOXIDE LEVEL 32 MMOL/L (20-31); CHLORIDE LEVEL 104 MMOL/L (98-107); CREATININE FOR GFR 0.75 MG/DL (0.55-1.30); FREE T4 1.55 NG/DL (0.89-1.76); GLOMERULAR FILTRATION RATE > 60.0 (>32); GLUCOSE, FASTING 83 MG/DL (74-106); POTASSIUM SERUM 4.1 MMOL/L (3.5-5.1); SODIUM LEVEL 141 MMOL/L (136-145); THYROID STIMULATING HORMONE 0.374 uIU/ML (0.55-4.78); TOTAL PROTEIN 6.1 G/DL (5.7-8.2)
== END ==
PROVIDERS: ATTEND Internal Medicine
DX: E03.9 Hypothyroidism, unspecified (principal); Z13.89 Encounter for screening for other disorder; I12.9 Hypertensive chronic kidney disease with stage 1 through stage 4 chronic kidney disease, or unspecified chronic kidney disease; N18.9 Chronic kidney disease, unspecified

== ENCOUNTER → 2023-02-26 | Outpatient (REF) | payer MEDICARE, BC | LOC: M LAB REF 16:21 | PROVIDERS: ATTEND Internal Medicine | DX: E78.00 Pure hypercholesterolemia, unspecified (principal) ==

== ENCOUNTER → 2023-03-01 | Outpatient (CLI) | payer MEDICARE, BC | LOC: M WHC 09:06 | PROVIDERS: ATTEND Internal Medicine | DX: R74.8 Abnormal levels of other serum enzymes (principal) ==

== ENCOUNTER → 2023-03-09 | Outpatient (REF) | payer MEDICARE, BC ==
[2023-03-09 08:53] LABS: ALBUMIN 2.8 G/DL (3.2-5.2); ALKALINE PHOSPHATASE 343 U/L (46-116); ALT/SGPT 50 U/L (7.0-40); AST/SGOT 25 U/L (<34); BILIRUBIN,TOTAL 0.6 MG/DL (0.3-1.2); BLOOD UREA NITROGEN 9 MG/DL (9-23); CALCIUM LEVEL 8.9 MG/DL (8.3-10.6); CARBON DIOXIDE LEVEL 36 MMOL/L (20-31); CHLORIDE LEVEL 103 MMOL/L (98-107); CREATININE FOR GFR 0.78 MG/DL (0.55-1.30); GLOMERULAR FILTRATION RATE > 60.0 (>32); GLUCOSE, FASTING 81 MG/DL (74-106); POTASSIUM SERUM 4.4 MMOL/L (3.5-5.1); SODIUM LEVEL 143 MMOL/L (136-145); TOTAL PROTEIN 5.7 G/DL (5.7-8.2)
[2023-03-09 09:27] LABS: HEPATITIS B CORE ANTIBODY IGM NEGATIVE (NEGATIVE)
[2023-03-09 09:28] LABS: HEPATITIS C VIRUS ABY INDEX 0.14 INDEX (<0.8)
== END ==
PROVIDERS: ATTEND Internal Medicine
DX: R74.8 Abnormal levels of other serum enzymes (principal)

== ENCOUNTER → 2023-03-21 | Outpatient (CLI) | payer MEDICARE, BC | LOC: M PLAIMG 12:45 | PROVIDERS: ATTEND Internal Medicine | DX: R74.8 Abnormal levels of other serum enzymes (principal); R93.5 Abnormal findings on diagnostic imaging of other abdominal regions, including retroperitoneum ==

== ENCOUNTER → 2023-04-25 | Outpatient (REF) | payer MEDICARE, BC ==
[2023-04-25 11:27] LABS: BASO # 0.1 10^3/uL (0.0-0.2); BASO % 1.3 % (0.0-1.0); EOS # 0.1 10^3/uL (0.0-0.5); EOS % 1.6 % (0.0-3.0); HEMATOCRIT 41.1 % (36.0-47.0); HEMOGLOBIN 13.2 g/dl (12.0-15.5); LYMPH # 2.4 10^3/uL (1.5-5.0); LYMPH % 35.1 % (24.0-44.0); MEAN CORPUSCULAR HEMOGLOBIN 30.2 pg (27.0-33.0); MEAN CORPUSCULAR HGB CONC 32.1 g/dl (32.0-36.5); MEAN CORPUSCULAR VOLUME 94.1 fl (80.0-96.0); MONO # 0.7 10^3/uL (0.0-0.8); MONO % 9.8 % (2.0-8.0); NEUTROPHILS # 3.6 10^3/uL (1.5-8.5); NEUTROPHILS % 51.9 % (36.0-66.0); PLATELET COUNT, AUTOMATED 290 10^3/uL (150-450); RED BLOOD COUNT 4.37 10^6/uL (4.00-5.40)
[2023-04-25 12:05] LABS: ALBUMIN 3.3 G/DL (3.2-5.2); BILIRUBIN,DIRECT 0.2 MG/DL (<0.4); BILIRUBIN,TOTAL 0.7 MG/DL (0.3-1.2); CALCIUM LEVEL 9.1 MG/DL (8.3-10.6); CREATININE FOR GFR 0.96 MG/DL (0.55-1.30); GLOMERULAR FILTRATION RATE 58.3 (>32); POTASSIUM SERUM 4.6 MMOL/L (3.5-5.1); TOTAL PROTEIN 6.3 G/DL (5.7-8.2)
== END ==
PROVIDERS: ATTEND Internal Medicine
DX: E03.9 Hypothyroidism, unspecified (principal); R74.9 Abnormal serum enzyme level, unspecified

== ENCOUNTER → 2023-06-25 | Outpatient (REF) | payer MEDICARE, BC ==
[2023-06-25 11:53] LABS: BASO # 0.1 10^3/uL (0.0-0.2); BASO % 1.2 % (0.0-1.0); EOS # 0.1 10^3/uL (0.0-0.5); EOS % 1.2 % (0.0-3.0); HEMATOCRIT 38.6 % (36.0-47.0); HEMOGLOBIN 12.4 g/dl (12.0-15.5); LYMPH # 2.5 10^3/uL (1.5-5.0); LYMPH % 40.9 % (24.0-44.0); MEAN CORPUSCULAR HEMOGLOBIN 30.3 pg (27.0-33.0); MEAN CORPUSCULAR HGB CONC 32.1 g/dl (32.0-36.5); MEAN CORPUSCULAR VOLUME 94.4 fl (80.0-96.0); MONO # 0.5 10^3/uL (0.0-0.8); MONO % 7.8 % (2.0-8.0); NEUTROPHILS # 2.9 10^3/uL (1.5-8.5); NEUTROPHILS % 48.7 % (36.0-66.0); PLATELET COUNT, AUTOMATED 254 10^3/uL (150-450); RED BLOOD COUNT 4.09 10^6/uL (4.00-5.40)
[2023-06-25 12:17] LABS: ALKALINE PHOSPHATASE 286 U/L (46-116); ALT/SGPT 108 U/L (7.0-40); AST/SGOT 59 U/L (<34); BILIRUBIN,TOTAL 0.7 MG/DL (0.3-1.2); BLOOD UREA NITROGEN 8 MG/DL (9-23); CALCIUM LEVEL 9.1 MG/DL (8.3-10.6); CARBON DIOXIDE LEVEL 34 MMOL/L (20-31); CHLORIDE LEVEL 104 MMOL/L (98-107); CREATININE FOR GFR 0.82 MG/DL (0.55-1.30); GLOMERULAR FILTRATION RATE > 60.0 (>32); GLUCOSE, FASTING 86 MG/DL (74-106); POTASSIUM SERUM 4.2 MMOL/L (3.5-5.1); SODIUM LEVEL 142 MMOL/L (136-145); TOTAL PROTEIN 5.9 G/DL (5.7-8.2)
[2023-06-25 12:18] LABS: THYROID STIMULATING HORMONE 0.651 uIU/ML (0.55-4.78)
[2023-06-25 12:19] LABS: FREE T4 1.35 NG/DL (0.89-1.76)
== END ==
PROVIDERS: ATTEND Internal Medicine
DX: E78.00 Pure hypercholesterolemia, unspecified (principal); E03.9 Hypothyroidism, unspecified; R74.01 Elevation of levels of liver transaminase levels

== ENCOUNTER → 2023-08-27 | Outpatient (REF) | payer MEDICARE, BC ==
[~2023-08-27] MED LIST changes: +ONDA4TAB6 PO
[2023-08-27 11:58] LABS: ALBUMIN 3.1 G/DL (3.2-5.2); BILIRUBIN,DIRECT 0.2 MG/DL (<0.4); BILIRUBIN,TOTAL 0.7 MG/DL (0.3-1.2); TOTAL PROTEIN 6.1 G/DL (5.7-8.2)
== END ==
PROVIDERS: ATTEND Internal Medicine
DX: R79.89 Other specified abnormal findings of blood chemistry (principal)